=== PATIENT | female | born 1960 | race Caucasian/White ===

== ENCOUNTER → 2016-05-10 | Outpatient (CLI) | payer MEDICAID ==
--- NOTE | 2016-05-11 08:58 | MM ---
Reason for exam: screening (asymptomatic). Last mammogram was performed 1 year and 3 months ago. History: Patient is postmenopausal. Family history of premenopausal breast cancer in sister at age 42 and premenopausal breast cancer in aunt at age 48. Benign right US cyst aspiration of the right breast, February 16, 2005. Took hormonal contraceptives for 15 years. Physical Findings: A clinical breast exam by your physician is recommended on an annual basis and results should be correlated with mammographic findings. MG 3D Screening Mammo W/Cad Bilateral CC and MLO view(s) were taken. Prior study comparison: February 10, 2015, bilateral MG 3d screening mammo w/cad. December 10, 2013, bilateral MG screening mammo w CAD. There are scattered fibroglandular densities. There is no discrete abnormality. No significant changes when compared with prior studies. ASSESSMENT: Negative, BI-RAD 1 RECOMMENDATION: Routine screening mammogram of both breasts in 1 year.
== END | disposition home or self-care (01) ==
LOC: RADMAMWWP 16:47
PROVIDERS: ATTEND Internal Medicine
DX: Z12.31 Encounter for screening mammogram for malignant neoplasm of breast (principal)
CPT/HCPCS: 77063; G0202

== ENCOUNTER → 2016-08-10 | Outpatient (CLI) | payer MEDICAID ==
--- NOTE | 2016-08-10 15:44 | BD ---
EXAMINATION TYPE: MG DEXA axial skeleton. DATE OF EXAM: 08/10/2016 COMPARISON: NONE CLINICAL HISTORY: Postmenopausal female Height: 5 ft 5 in Weight: 227 FRAX RISK QUESTIONS: Alcohol (3 or more units per day): NO Family History (Parent hip fracture): NO Glucocorticoids (More than 3mos): NO (Ex: prednisone, prednisolone, methylprednisolone, dexamethasone, and hydrocortisone). History of Fracture in Adulthood: NO Secondary Osteoporosis: 1. Type 1 Diabetes: NO 2. Hyperthyroidism: NO 3. Menopause before 45: NO 4. Malnutrition: NO 5. Chronic liver disease: NO Rheumatoid Arthritis: NO Current Tobacco Use: NO RISK FACTORS HISTORY OF: Active: NO Postmenopausal woman: PARTIAL HYST AGE 37SYMPTOMS OF BHARATH WITHIN LAST 2-3 YRS MEDICATIONS: Additional Medications: LISINOPRIL,PRILOSEC,FLEXERIL,CELEXA,HYDROCHLOROTHIAZIDE, ALLERGY MEDS,VIT D, MULTI VIT, EXAM MEASUREMENTS: Bone mineral densitometry was performed using the [employer]. Bone mineral density as measured about the Lumbar spine is: ----- L1-L4(G/cm2): 0.940 T Score Values are as follows: ----- L2: -2.6 ----- L3: -1.6 ----- L4: -1.3 ----- L1-L4: -2.0 Bone mineral density has: Decreased -4.9% since study of: 2010 Bone mineral density about the R hip (g/cm2): 0.934 Bone mineral density about the L hip (g/cm2): 1.015 T Score values are as follows: -----R Neck: -0.7 -----L Neck: -0.2 -----R Total: -0.5 -----L Total: 0.6 Bone mineral density has: Increased 5.8% since study of: 2010 IMPRESSION: OSTEOPOROSIS. NOTE: T-SCORE=SD OF THE YOUNG ADULT MEAN.
== END | disposition home or self-care (01) ==
LOC: RADBDWWP 14:17
PROVIDERS: ATTEND Obstetrics & Gynecology
DX: M81.0 Age-related osteoporosis without current pathological fracture (principal); Z78.0 Asymptomatic menopausal state
CPT/HCPCS: 77080

== ENCOUNTER → 2016-09-08 | Outpatient (CLI) | payer MEDICAID ==
--- NOTE | 2016-09-08 14:54 | CT ---
EXAMINATION TYPE: CT chest w con DATE OF EXAM: 09/08/2016 COMPARISON: NONE HISTORY: Thoracic Aneurysm without mention of rupture CT DLP: 411.00 mGycm Automated exposure control for dose reduction was used. CONTRAST: CT scan of the chest is performed with IV Contrast, patient injected with 100 ml mL of Omnipaque 300. FINDINGS: LUNGS: The lungs are grossly clear, there is no concerning parenchymal mass or nodule identified. T here is no pleural effusion or pneumothorax seen. The tracheobronchial tree is patent. MEDIASTINUM: There is an ascending thoracic aortic aneurysm which is stable in size and measures 4.4 cm AP dimension versus 4.4 cm previously. There is no evidence for dissection or rupture. No mediasti nal hematoma is identified. Aneurysm does involve the aortic arch with proximal measurement of 4.1 cm in distal aortic arch measurement of 3.7 cm. Descending thoracic aorta is of normal caliber. There i s evidence of mild cardiomegaly. No adenopathy appreciated. Hilar structures are within. UPPER ABDOMEN: No significant abnormality appreciated. OTHER: No additional significant abnormality is seen. IMPRESSION: 1. Stable aneurysm of the ascending thoracic aorta and aortic arch. No complicating factors seen.
== END | disposition home or self-care (01) ==
LOC: RADCTMAIN 13:03
PROVIDERS: ATTEND Internal Medicine
DX: I71.2 Thoracic aortic aneurysm, without rupture (principal)
CPT/HCPCS: 71260; Q9967

== ENCOUNTER 2016-12-27 02:43 | Emergency (ER) | payer MEDICAID ==
--- NOTE | 2016-12-27 02:55 | ED ---
Trauma HPI - General Stated Complaint: FALL Time Seen by Provider: 12/27/16 02:44 Source: patient, EMS Limitations: no limitations - History of Present Illness Initial Comments: This patient is a 56-year-old woman who states that she was walking through her home in the dark and took a misstep. When she did she went onto the stairs and fell down a flight of stairs. She was not able to get up off of the bottom due to pain in the left arm. She also has pain in the left side of her upper neck. Patient denied loss consciousness. She is not having headache. She is not having chest pain, dyspnea, back pain, or abdominal pain. MD Complaint: fall Onset/Timin -: hour(s) Loss of Consciousness: no Location: neck Location - Extremities: Left: Arm, Forearm Consistency: constant Context: mechanical fall Associated Symptoms: denies other symptoms Treatments Prior to Arrival: cervical collar, splint(s) - Related Data Home Medications Medication Instructions Recorded Confirmed Albuterol Inhaler [Ventolin 2 puff INHALATION Q4HR PRN 12/20/13 07/16/15 Inhaler] Cetirizine HCl [Zyrtec] 10 mg PO DAILY 12/20/13 07/16/15 Citalopram Hydrobromide [CeleXA] 40 mg PO HS 12/20/13 07/16/15 Cyclobenzaprine [Flexeril] 10 mg PO BID 12/20/13 07/16/15 Omeprazole 40 mg PO AC-BRKFST 12/20/13 07/16/15 clonazePAM [KlonoPIN] 0.5 mg PO BID 12/20/13 07/16/15 Hydrochlorothiazide 12.5 mg PO DAILY 07/08/15 07/16/15 Lisinopril [Zestril] 20 mg PO DAILY 07/08/15 07/16/15 Naproxen Sodium [Aleve] 220 - 440 mg PO DIRECTED PRN 07/08/15 07/16/15 traMADol HCL [Ultram] 50 mg PO DIRECTED PRN 07/08/15 07/16/15 Metoclopramide [Reglan] 10 mg PO ACHS PRN 07/15/15 07/16/15 Previous Rx's Medication Instructions Recorded Hydrocodone/Acetaminophen [Hernandez 1 each PO Q6HR PRN #30 tab 07/16/15 9-163] Allergies Allergy/AdvReac Type Severity Reaction Status Date / Time ondansetron HCl AdvReac was told Verified 07/16/15 09:05 [From Zofran (as to avoid hydrochloride)] d/t prolonged QT on EKG CATS Allergy SEVERE Uncoded 07/16/15 09:05 SNEEZING, NASAL ALLERGY SX HAYFEVER Allergy SNEEZING, Uncoded 07/16/15 09:05 RHINITIS - W/ POLLENS, ETC MOLD,DUST Allergy SNEEZING, Uncoded 07/16/15 09:05 RHINITIS Review of Systems ROS Statement: Those systems with pertinent positive or pertinent negative responses have been documented in the HPI. ROS Other: All systems not noted in ROS Statement are negative. Constitutional: Denies: fever, weakness Eyes: Denies: vision change Respiratory: Denies: cough, dyspnea Cardiovascular: Denies: chest pain, syncope Gastrointestinal: Denies: abdominal pain, vomiting, diarrhea Genitourinary: Denies: dysuria, hematuria Musculoskeletal: Denies: back pain Skin: Denies: other Neurological: Denies: headache, weakness, confusion Hematological/Lymphatic: Denies: easy bleeding Past Medical History Past Medical History: GERD/Reflux, Hypertension Additional Past Medical History / Comment(s): hernia History of Any Multi-Drug Resistant Organisms: None Reported Past Surgical History: Bladder Surgery, Hysterectomy, Orthopedic Surgery Additional Past Surgical History / Comment(s): jaw surgery Additional Past Anesthesia/Blood Transfusion Reaction / Comment(s): WOKE UP DURING EGD Past Psychological History: Anxiety Smoking Status: Never smoker Past Alcohol Use History: Daily - Past Family History Mother Family Medical History: Unable to Obtain General Exam General appearance: alert, in no apparent distress, obese Head exam: Present: atraumatic, normocephalic Eye exam: Present: normal appearance, PERRL, EOMI. Absent: scleral icterus, conjunctival injection ENT exam: Present: mucous membranes dry Neck exam: Present: other (Cervical collar) Respiratory exam: Present: normal lung sounds bilaterally. Absent: respiratory distress, wheezes, rales, rhonchi, stridor, chest wall tenderness Cardiovascular Exam: Present: regular rate, normal rhythm, normal heart sounds. Absent: systolic murmur, diastolic murmur, rubs, gallop GI/Abdominal exam: Present: soft. Absent: distended, tenderness, guarding, rebound, mass Extremities exam: Present: normal inspection, tenderness, normal capillary refill, other (Patient has laceration to the posterior aspect of the left elbow. ). Absent: full ROM, pedal edema, calf tenderness Left Shoulder Exam: Present: normal inspection Upper Arm exam: Present: tenderness, swelling. Absent: full ROM Elbow exam: Present: tenderness, swelling, laceration. Absent: full ROM Forearm Wrist exam: Present: tenderness, swelling. Absent: full ROM Neurosensory exam: Present: 2-point discrimination Vascular: Present: normal capillary refill, radial pulse (Intact). Absent: vascular compromise Back exam: Present: normal inspection. Absent: CVA tenderness (R), CVA tenderness (L) Neurological exam: Present: alert, oriented X3. Absent: motor sensory deficit Skin exam: Present: warm, dry, intact, normal color. Absent: rash Course Vital Signs 12/27/16 12/27/16 12/27/16 02:44 03:47 04:44 Temperature 98.6 F 97.8 F Pulse Rate 82 88 86 Respiratory 20 20 17 Rate Blood Pressure 137/71 147/73 135/69 O2 Sat by Pulse 94 L 97 96 Oximetry - Reevaluation(s) Reevaluation #1: 12/27/16 04:24 I was in the process of reviewing the patient's CT cervical spine and received a call from the radiology service describing patient's odontoid fracture. I did go and discuss this finding with the patient and with her and they expressed a desire to go to [facility]. I have discussed the case with Dr. Palafox there and she is discussing with the trauma surgery service to see if this patient can be accepted. Medical Decision Making - Medical Decision Making Patient's 56-year-old woman who had a fall down flight of stairs. She has odontoid fracture. No neurologic deficit. She has comminuted fracture to the distal humerus. There is laceration to the posterior aspect of the arm here and though no bone observed suspect this is open fracture. Patient has distal radius fracture. Patient is neurovascularly intact. - Lab Data Result diagrams: 12/27/16 02:44 12/27/16 02:44 Lab Results 12/27/16 12/27/16 12/27/16 Range/Units 02:44 02:44 02:44 WBC 15.6 H (3.8-10.6) k/uL RBC 4.46 (3.80-5.40) m/uL Hgb 12.1 (11.4-16.0) gm/dL Hct 36.9 (34.0-46.0) % MCV 82.7 (80.0-100.0) fL MCH 27.1 (25.0-35.0) pg MCHC 32.8 (31.0-37.0) g/dL RDW 14.1 (11.5-15.5) % Plt Count 405 (150-450) k/uL Neutrophils % 75 % Lymphocytes % 17 % Monocytes % 4 % Eosinophils % 2 % Basophils % 0 % Neutrophils # 11.7 H (1.3-7.7) k/uL Lymphocytes # 2.6 (1.0-4.8) k/uL Monocytes # 0.7 (0-1.0) k/uL Eosinophils # 0.3 (0-0.7) k/uL Basophils # 0.1 (0-0.2) k/uL PT (9.0-12.0) sec INR (<1.2) APTT (22.0-30.0) sec Sodium 132 L (137-145) mmol/L Potassium 3.7 (3.5-5.1) mmol/L Chloride 98 (98-107) mmol/L Carbon Dioxide 24 (22-30) mmol/L Anion Gap 10 mmol/L BUN 15 (7-17) mg/dL Creatinine 0.61 (0.52-1.04) mg/dL Est GFR (MDRD) Af Amer >60 (>60 ml/min/1.73 sqM) Est GFR (MDRD) Non-Af >60 (>60 ml/min/1.73 sqM) Glucose 138 H (74-99) mg/dL Plasma Lactic Acid Husam (0.7-2.0) mmol/L Calcium 9.5 (8.4-10.2) mg/dL Total Bilirubin 0.2 (0.2-1.3) mg/dL AST 56 H (14-36) U/L ALT 48 (9-52) U/L Alkaline Phosphatase 62 (38-126) U/L Troponin I (0.000-0.034) ng/mL Total Protein 6.8 (6.3-8.2) g/dL Albumin 4.0 (3.5-5.0) g/dL Urine Color Urine Appearance (Clear) Urine pH (5.0-8.0) Ur Specific [place] (1.001-1.035) Urine Protein (Negative) Urine Glucose (UA) (Negative) Urine Ketones (Negative) Urine Blood (Negative) Urine Nitrite (Negative) Urine Bilirubin (Negative) Urine Urobilinogen (<2.0) mg/dL Ur Leukocyte Esterase (Negative) Urine RBC (0-5) /hpf Urine WBC (0-5) /hpf Ur Squamous Epith Cells (0-4) /hpf Urine Opiates Screen (NotDetected) Ur Oxycodone Screen (NotDetected) Urine Methadone Screen (NotDetected) Ur Propoxyphene Screen (NotDetected) Ur Barbiturates Screen (NotDetected) U Tricyclic Antidepress (NotDetected) Ur Phencyclidine Scrn (NotDetected) Ur Amphetamines Screen (NotDetected) U Methamphetamines Scrn (NotDetected) U Benzodiazepines Scrn (NotDetected) Urine Cocaine Screen (NotDetected) U Marijuana (THC) Screen (NotDetected) Serum Alcohol <10 mg/dL Blood Type A Positive Blood Type Confirm Blood Type Recheck CABO Indicated Antibody Screen NEGATIVE Spec Expiration Date 12/30/2016234312/27/16 12/27/16 12/27/16 Range/Units 02:44 02:44 02:44 WBC (3.8-10.6) k/uL RBC (3.80-5.40) m/uL Hgb (11.4-16.0) gm/dL Hct (34.0-46.0) % MCV (80.0-100.0) fL MCH (25.0-35.0) pg MCHC (31.0-37.0) g/dL RDW (11.5-15.5) % Plt Count (150-450) k/uL Neutrophils % % Lymphocytes % % Monocytes % % Eosinophils % % Basophils % % Neutrophils # (1.3-7.7) k/uL Lymphocytes # (1.0-4.8) k/uL Monocytes # (0-1.0) k/uL Eosinophils # (0-0.7) k/uL Basophils # (0-0.2) k/uL PT 10.3 (9.0-12.0) sec INR 1.0 (<1.2) APTT 22.3 (22.0-30.0) sec Sodium (137-145) mmol/L Potassium (3.5-5.1) mmol/L Chloride (98-107) mmol/L Carbon Dioxide (22-30) mmol/L Anion Gap mmol/L BUN (7-17) mg/dL Creatinine (0.52-1.04) mg/dL Est GFR (MDRD) Af Amer (>60 ml/min/1.73 sqM) Est GFR (MDRD) Non-Af (>60 ml/min/1.73 sqM) Glucose (74-99) mg/dL Plasma Lactic Acid Husam (0.7-2.0) mmol/L Calcium (8.4-10.2) mg/dL Total Bilirubin (0.2-1.3) mg/dL AST (14-36) U/L ALT (9-52) U/L Alkaline Phosphatase (38-126) U/L Troponin I <0.012 (0.000-0.034) ng/mL Total Protein (6.3-8.2) g/dL Albumin (3.5-5.0) g/dL Urine Color Urine Appearance (Clear) Urine pH (5.0-8.0) Ur Specific [place] (1.001-1.035) Urine Protein (Negative) Urine Glucose (UA) (Negative) Urine Ketones (Negative) Urine Blood (Negative) Urine Nitrite (Negative) Urine Bilirubin (Negative) Urine Urobilinogen (<2.0) mg/dL Ur Leukocyte Esterase (Negative) Urine RBC (0-5) /hpf Urine WBC (0-5) /hpf Ur Squamous Epith Cells (0-4) /hpf Urine Opiates Screen (NotDetected) Ur Oxycodone Screen (NotDetected) Urine Methadone Screen (NotDetected) Ur Propoxyphene Screen (NotDetected) Ur Barbiturates Screen (NotDetected) U Tricyclic Antidepress (NotDetected) Ur Phencyclidine Scrn (NotDetected) Ur Amphetamines Screen (NotDetected) U Methamphetamines Scrn (NotDetected) U Benzodiazepines Scrn (NotDetected) Urine Cocaine Screen (NotDetected) U Marijuana (THC) Screen (NotDetected) Serum Alcohol mg/dL Blood Type Blood Type Confirm A Positive Blood Type Recheck Antibody Screen Spec Expiration Date 12/27/16 12/27/16 Range/Units 02:57 03:13 WBC (3.8-10.6) k/uL RBC (3.80-5.40) m/uL Hgb (11.4-16.0) gm/dL Hct (34.0-46.0) % MCV (80.0-100.0) fL MCH (25.0-35.0) pg MCHC (31.0-37.0) g/dL RDW (11.5-15.5) % Plt Count (150-450) k/uL Neutrophils % % Lymphocytes % % Monocytes % % Eosinophils % % Basophils % % Neutrophils # (1.3-7.7) k/uL Lymphocytes # (1.0-4.8) k/uL Monocytes # (0-1.0) k/uL Eosinophils # (0-0.7) k/uL Basophils # (0-0.2) k/uL PT (9.0-12.0) sec INR (<1.2) APTT (22.0-30.0) sec Sodium (137-145) mmol/L Potassium (3.5-5.1) mmol/L Chloride (98-107) mmol/L Carbon Dioxide (22-30) mmol/L Anion Gap mmol/L BUN (7-17) mg/dL Creatinine (0.52-1.04) mg/dL Est GFR (MDRD) Af Amer (>60 ml/min/1.73 sqM) Est GFR (MDRD) Non-Af (>60 ml/min/1.73 sqM) Glucose (74-99) mg/dL Plasma Lactic Acid Husam 1.0 (0.7-2.0) mmol/L Calcium (8.4-10.2) mg/dL Total Bilirubin (0.2-1.3) mg/dL AST (14-36) U/L ALT (9-52) U/L Alkaline Phosphatase (38-126) U/L Troponin I (0.000-0.034) ng/mL Total Protein (6.3-8.2) g/dL Albumin (3.5-5.0) g/dL Urine Color Yellow Urine Appearance Cloudy H (Clear) Urine pH 7.5 (5.0-8.0) Ur Specific [place] 1.009 (1.001-1.035) Urine Protein Trace H (Negative) Urine Glucose (UA) Negative (Negative) Urine Ketones Negative (Negative) Urine Blood Negative (Negative) Urine Nitrite Negative (Negative) Urine Bilirubin Negative (Negative) Urine Urobilinogen <2.0 (<2.0) mg/dL Ur Leukocyte Esterase Trace H (Negative) Urine RBC 2 (0-5) /hpf Urine WBC 7 H (0-5) /hpf Ur Squamous Epith Cells 1 (0-4) /hpf Urine Opiates Screen Detected H (NotDetected) Ur Oxycodone Screen Not Detected (NotDetected) Urine Methadone Screen Not Detected (NotDetected) Ur Propoxyphene Screen Not Detected (NotDetected) Ur Barbiturates Screen Not Detected (NotDetected) U Tricyclic Antidepress Detected H (NotDetected) Ur Phencyclidine Scrn Not Detected (NotDetected) Ur Amphetamines Screen Not Detected (NotDetected) U Methamphetamines Scrn Not Detected (NotDetected) U Benzodiazepines Scrn Not Detected (NotDetected) Urine Cocaine Screen Not Detected (NotDetected) U Marijuana (THC) Screen Not Detected (NotDetected) Serum Alcohol mg/dL Blood Type Blood Type Confirm Blood Type Recheck Antibody Screen Spec Expiration Date - EKG Data -: EKG Interpreted by [facility] EKG shows normal: sinus rhythm, axis (Normal), intervals (Normal), QRS complexes (Normal), ST-T waves (Normal) Rate: normal (Rate 83 bpm) Interpretation: other (Possible left atrial enlargement) Disposition Clinical Impression: Fall, Fx C2 vertebra-closed, Comminuted left humeral fracture, Fracture of left radius Disposition: HOME SELF-CARE Referrals: Angelina Mackey MD [Primary Care Provider] - 1-2 days
[2016-12-27 02:57] LABS: Basophils # (A) 0.1 k/uL (0-0.2); Basophils % (A) 0 %; CH 28.3; CHCM 34.4; Eosinophils # (A) 0.3 k/uL (0-0.7); Eosinophils % (A) 2 %; HCT 36.9 % (34.0-46.0); HDW 2.35; HGB 12.1 gm/dL (11.4-16.0); Luc # (Auto) 0.13; Luc % (Auto) 1; Lymphocytes # (A) 2.6 k/uL (1.0-4.8); Lymphocytes % (A) 17 %; MCH 27.1 pg (25.0-35.0); MCHC 32.8 g/dL (31.0-37.0); MCV 82.7 fL (80.0-100.0); Mean Platelet Volume 6.8; Monocytes # (A) 0.7 k/uL (0-1.0); Monocytes % (A) 4 %; Neutrophils # (A) 11.7 k/uL (1.3-7.7); Neutrophils % (A) 75 %; RBC 4.46 m/uL (3.80-5.40); RDW 14.1 % (11.5-15.5); WBC 15.6 k/uL (3.8-10.6); WBC (Perox) 16.36
[2016-12-27 03:06] LABS: Partial Thromboplastin Time 22.3 sec (22.0-30.0); Prothrombin Time 10.3 sec (9.0-12.0)
[2016-12-27 03:08] LABS: ALT 48 U/L (9-52); AST 56 U/L (14-36); Alcohol <10 mg/dL; Alkaline Phosphatase 62 U/L (38-126); Anion Gap 10 mmol/L; Blood Urea Nitrogen 15 mg/dL (7-17); Calcium 9.5 mg/dL (8.4-10.2); Carbon Dioxide 24 mmol/L (22-30); Chloride 98 mmol/L (98-107); Glucose 138 mg/dL (74-99); Non-African American GFR(MDRD) >60 (>60 ml/min/1.73 sqM); Potassium 3.7 mmol/L (3.5-5.1); Sodium 132 mmol/L (137-145); Total Bilirubin 0.2 mg/dL (0.2-1.3); Total Protein 6.8 g/dL (6.3-8.2)
[2016-12-27 03:25] LABS: Appearance,Urine Cloudy (Clear); Bilirubin,Urine Negative (Negative); Glucose,Urine (UA) Negative (Negative); Ketones,Urine Negative (Negative); Leukocyte Esterase,Urine Trace (Negative); Nitrite,Urine Negative (Negative); PH, Urine 7.5 (5.0-8.0); Particle Count 15340; Protein,Urine Trace (Negative); RBC,Urine 2 /hpf (0-5); Specific Gravity,Urine 1.009 (1.001-1.035); Squamous Epithelial Cell,Urine 1 /hpf (0-4); UA Billing (MACRO vs. MICRO) MICRO; Urobilinogen,Urine <2.0 mg/dL (<2.0); WBC,Urine 7 /hpf (0-5)
--- NOTE | 2016-12-27 03:56 | XR ---
EXAM: XR Chest, 1 View CLINICAL HISTORY: Trauma TECHNIQUE: Frontal view of the chest. COMPARISON: No relevant prior studies available. FINDINGS: Lungs: Bilateral perihilar hazy prominence with evidence of peribronchial cuffing and cephalization suggesting mild CHF. Pleural space: Unremarkable. No pneumothorax. Heart: The heart appears mildly enlarged. Mediastinum: Prominent, likely secondary to vasculature. Bones/joints: No evidence of a displaced rib fracture. Tubes, lines and devices: Monitor leads overlie the chest, somewhat limiting evaluation. IMPRESSION: 1. Mild cardiomegaly with evidence of mild CHF. Correlate clinically. 2. No evidence of a displaced rib fracture. If there is further clinical concern, consider dedicated radiographs of the ribs.
--- NOTE | 2016-12-27 04:07 | CT ---
EXAM: CT Cervical Spine Without Intravenous Contrast CLINICAL HISTORY: Reason: trauma TECHNIQUE: Axial computed tomography images of the cervical spine without intravenous contrast. DLP is 401.30 mGy-cm. This CT exam was performed using one or more of the following dose reduction techniques: automated exposure control, adjustment of the mA and/or kV according to patient size, and/or use of iterative reconstruction technique. COMPARISON: No relevant prior studies available. FINDINGS: Vertebrae: Type III comminuted fracture of the odontoid with extension into the left lateral mass of C2 and likely the transverse foramen. There is no evidence of significant displacement. Discs/spinal canal/neural foramina: No acute findings. No spinal canal stenosis. Other bones/joints: Non-comminuted minimally displaced fracture involving the left occipital condyle (series 6, image 17). Soft tissues: No significant soft tissue swelling. Lung apices: Unremarkable as visualized. IMPRESSION: 1. Type III comminuted fracture of the odontoid with extension into the left lateral mass of C2 and likely the left transverse foramen. There is no evidence of significant displacement. There is no evidence of cord compression. 2. Non-comminuted minimally displaced fracture involving the left occipital condyle. [employer] 12/27/16 04:02 Call Doctor Regarding Trauma, called DR SUMMERS @ [phone]
--- NOTE | 2016-12-27 04:09 | XR ---
EXAM: XR Left Forearm, 2 Views CLINICAL HISTORY: Reason: trauma TECHNIQUE: Frontal and lateral views of the left forearm. COMPARISON: No relevant prior studies available. FINDINGS: Bones/joints: Comminuted fracture of the distal left radius extending to the articular surface with evidence of retraction and volar displacement of the distal fracture fragments. Soft tissues: Associated overlying soft tissue swelling. IMPRESSION: Comminuted fracture of the distal left radius extending to the articular surface with evidence of retraction and volar displacement of the distal fracture fragments.
--- NOTE | 2016-12-27 04:11 | XR ---
EXAM: XR Left Humerus, 2 or More Views CLINICAL HISTORY: Reason: trauma TECHNIQUE: Frontal and lateral views of the left humerus. COMPARISON: No relevant prior studies available. FINDINGS: Bones/joints: Extensive comminuted fracture of the distal humerus with significant dorsal/posterior displacement of the distal fracture fragments. Associated soft tissue swelling is seen with evidence of subcutaneous air. No dislocation. Soft tissues: See above. IMPRESSION: Extensive comminuted fracture of the distal humerus with significant dorsal/posterior displacement of the distal fracture fragments. Associated soft tissue swelling is seen with evidence of subcutaneous air.
--- NOTE | 2016-12-27 04:12 | XR ---
EXAM: XR Pelvis, 1 or 2 Views CLINICAL HISTORY: Reason: Trauma TECHNIQUE: Frontal view of the pelvis. COMPARISON: No relevant prior studies available. FINDINGS: Bones/joints: Unremarkable. No acute fracture. No dislocation. Soft tissues: Unremarkable. IMPRESSION: Normal pelvis x-ray.
[2016-12-27] MEDS ORDERED: ceFAZolin 1,000 MG in DEXTROSE/WATER 1 50ML.BAG IVPB STA (04:23)
[2016-12-27] MEDS ORDERED: HYDROmorphone 1 MG/ML 1 ML SYRINGE IVP STA ×2 (04:24→05:17)
[2016-12-27 04:47] VITALS: TEMP 97.8
[2016-12-27 05:40] VITALS: BP 126/66; PULSE 92; RESP 18
== END 2016-12-27 05:41 | disposition home or self-care (01) ==
LOC: EC 02:43
DX: S42.402A Unspecified fracture of lower end of left humerus, initial encounter for closed fracture (principal); S52.502A Unspecified fracture of the lower end of left radius, initial encounter for closed fracture; S12.100A Unspecified displaced fracture of second cervical vertebra, initial encounter for closed fracture; K21.9 Gastro-esophageal reflux disease without esophagitis; I10 Essential (primary) hypertension; F41.9 Anxiety disorder, unspecified; Z79.899 Other long term (current) drug therapy; Z91.048 Other nonmedicinal substance allergy status; Z88.8 Allergy status to other drugs, medicaments and biological substances; Z91.09 Other allergy status, other than to drugs and biological substances; W10.9XXA Fall (on) (from) unspecified stairs and steps, initial encounter; Y92.009 Unspecified place in unspecified non-institutional (private) residence as the place of occurrence of the external cause
CPT/HCPCS: 36415; 93005; 86900; 86901; 80053; 83605; 84484; 85025; 85610; 85730; 86850; 81001; 80306; 80320; 71010; 72170; 73060; 73090; 72125; 99285; 96365; 96375; 96376; J1170; J0690

== ENCOUNTER → 2017-03-21 | Outpatient (CLI) | payer MEDICAID | END | disposition home or self-care (01) | LOC: LABWHC1 14:35 | PROVIDERS: ATTEND Obstetrics & Gynecology | DX: N95.1 Menopausal and female climacteric states (principal); N95.9 Unspecified menopausal and perimenopausal disorder | CPT/HCPCS: 36415; 82670; 83001 ==

== ENCOUNTER → 2017-04-19 | Outpatient (CLI) | payer MEDICAID ==
[2017-04-19 09:46] LABS: Basophils % (A) 0 %; Eosinophils # (A) 0.1 k/uL (0-0.7); Eosinophils % (A) 3 %; HCT 37.5 % (34.0-46.0); HGB 12.7 gm/dL (11.4-16.0); Lymphocytes # (A) 1.1 k/uL (1.0-4.8); Lymphocytes % (A) 21 %; MCH 26.9 pg (25.0-35.0); MCHC 33.9 g/dL (31.0-37.0); MCV 79.5 fL (80.0-100.0); Mean Platelet Volume 6.7; Monocytes # (A) 0.4 k/uL (0-1.0); Monocytes % (A) 8 %; Neutrophils # (A) 3.5 k/uL (1.3-7.7); Neutrophils % (A) 66 %; Platelet Count 370 k/uL (150-450); RBC 4.72 m/uL (3.80-5.40); RDW 14.1 % (11.5-15.5); WBC 5.3 k/uL (3.8-10.6)
[2017-04-19 10:23] LABS: T4, Free (Free Thyroxine) 1.02 ng/dL (0.78-2.19)
[2017-04-19 13:16] LABS: Erythrocyte Sedimentation Rate 9 mm/hr (0-20)
== END | disposition home or self-care (01) ==
LOC: LABWHC1 09:05
PROVIDERS: ATTEND Psychiatry & Neurology Neurology
DX: R53.83 Other fatigue (principal); R41.3 Other amnesia
CPT/HCPCS: 36415; 82306; 82550; 82607; 84439; 84443; 85025; 85652

== ENCOUNTER → 2017-09-20 | Outpatient (CLI) | payer MEDICAID ==
--- NOTE | 2017-09-26 17:13 | MM ---
Reason for exam: screening (asymptomatic). Last mammogram was performed 1 year and 4 months ago. History: Patient is postmenopausal. Family history of premenopausal breast cancer in sister at age 42 and premenopausal breast cancer in aunt at age 48. Benign right US cyst aspiration of the right breast, February 16, 2005. Took hormonal contraceptives for 15 years. MG 3D Screening Mammo W/Cad Bilateral CC and MLO view(s) were taken. Prior study comparison: May 10, 2016, bilateral MG 3d screening mammo w/cad. February 10, 2015, bilateral MG 3d screening mammo w/cad. December 10, 2013, bilateral MG screening mammo w CAD. There are scattered fibroglandular densities. No suspicious abnormality. No significant new finding since prior exam. ASSESSMENT: Negative, BI-RAD 1 RECOMMENDATION: Routine screening mammogram of both breasts in 1 year.
== END | disposition home or self-care (01) ==
LOC: RADMAMWWP 14:01
PROVIDERS: ATTEND Obstetrics & Gynecology
DX: Z12.31 Encounter for screening mammogram for malignant neoplasm of breast (principal); Z80.3 Family history of malignant neoplasm of breast
CPT/HCPCS: 77063; 77067

== ENCOUNTER → 2017-10-06 | Outpatient (CLI) | payer MEDICAID ==
[2017-10-06 10:33] LABS: HCT 41.6 % (34.0-46.0); HGB 13.6 gm/dL (11.4-16.0); MCH 27.8 pg (25.0-35.0); MCHC 32.6 g/dL (31.0-37.0); MCV 85.5 fL (80.0-100.0); Mean Platelet Volume 6.1; Platelet Count 363 k/uL (150-450); RBC 4.87 m/uL (3.80-5.40); RDW 12.6 % (11.5-15.5); WBC 8.9 k/uL (3.8-10.6)
[2017-10-06 11:10] LABS: ALT 31 U/L (9-52); AST 33 U/L (14-36); Albumin 4.3 g/dL (3.5-5.0); Alkaline Phosphatase 62 U/L (38-126); Anion Gap 10 mmol/L; Blood Urea Nitrogen 10 mg/dL (7-17); Calcium 9.7 mg/dL (8.4-10.2); Carbon Dioxide 23 mmol/L (22-30); Chloride 102 mmol/L (98-107); Cholesterol 172 mg/dL (<200); Glucose 88 mg/dL (74-99); HDL Cholesterol 45 mg/dL (40-60); LDL Cholesterol,Calculated 96 mg/dL (0-99); Potassium 4.5 mmol/L (3.5-5.1); Sodium 135 mmol/L (137-145); Total Bilirubin 0.5 mg/dL (0.2-1.3); Total Protein 7.3 g/dL (6.3-8.2); Triglycerides 153 mg/dL (<150)
== END | disposition home or self-care (01) ==
LOC: LABWHC1 09:44
PROVIDERS: ATTEND Obstetrics & Gynecology
DX: Z00.00 Encounter for general adult medical examination without abnormal findings (principal); N95.1 Menopausal and female climacteric states; I10 Essential (primary) hypertension; K21.9 Gastro-esophageal reflux disease without esophagitis
CPT/HCPCS: 36415; 80053; 80061; 82670; 83001; 84403; 84443; 85027

== ENCOUNTER → 2017-10-10 | Outpatient (CLI) | payer MEDICAID ==
--- NOTE | 2017-10-11 08:58 | CT ---
EXAMINATION TYPE: CT chest wo con DATE OF EXAM: 10/10/2017 COMPARISON: 09/08/2016 HISTORY: Follow up for thoracic anuerysm CT DLP: [address] of the chest was performed with lung and mediastinal window settings submitted. The la ck of contrast limits evaluation of the vascular, mediastinal and parenchymal structures including th e upper abdomen. LUNGS: The lungs are clear and free of infiltrate. No atelectasis. No pulmonary nodule or mass is de tected. No pleural effusion. No CT evidence of interstitial lung disease. MEDIASTINUM/DOE: Ascending aortic thoracic aortic aneurysm measuring 4.4 cm in AP dimension unchange d from prior measurement of 4.4 cm. No complicating factors identified. The heart is not enlarged. N o evidence for mediastinal mass. No lymph nodes greater than 1cm. UPPER ABDOMEN: No significant abnormality is seen. OTHER: No significant other abnormality. IMPRESSION: 1. Stable uncomplicated ascending thoracic aortic aneurysm.
== END | disposition home or self-care (01) ==
LOC: RADCTMAIN 16:20
PROVIDERS: ATTEND Internal Medicine
DX: I71.2 Thoracic aortic aneurysm, without rupture (principal)
CPT/HCPCS: 71250

== ENCOUNTER → 2017-12-18 | Outpatient (CLI) | payer MEDICAID ==
--- NOTE | 2017-12-18 15:56 | CT ---
EXAMINATION TYPE: CT cervical spine wo con DATE OF EXAM: 12/18/2017 COMPARISON: 12/27/2016 HISTORY: Follow up for c-spine fracture. CT DLP: 625.1 mGycm Automated exposure control for dose reduction was used. TECHNIQUE: CT scan of the cervical spine is obtained without contrast, axial images are obtained, sa gittal and coronal reformatted images are also reviewed. FINDINGS: Assessment spinal canal is limited due to noncontrast technique and artifact. There is a de formity of the odontoid compatible with a healed fracture. The lateral masses appear to be normally s ituated. Fracture involving the left occipital condyle demonstrates interval healing. Loss of the normal cervical lordosis with diffuse osteopenia. There is mild multilevel degenerative d isc disease with moderate changes at C5-C6 and posterior spondylosis with uncovertebral joint hypertr ophy and mild right-sided foraminal encroachment. IMPRESSION: 1. There is interval healing of the previously noted fractures involving the odontoid and left occipi alberto condyle. 2. Multilevel degenerative disc disease with most marked changes at C5-C6 correlate with MRI as clini christiane warranted. 3. There is a stable nodular density in the left upper lobe measuring 6 mm. This most likely is posti nflammatory.
== END | disposition home or self-care (01) ==
LOC: RADCTMAIN 14:35
PROVIDERS: ATTEND Nurse Practitioner Family
DX: M50.322 Other cervical disc degeneration at C5-C6 level (principal)
CPT/HCPCS: 72125

== ENCOUNTER → 2017-12-21 | Outpatient (CLI) | payer MEDICAID ==
[2017-12-19 17:01] VITALS: BMI 35.2
[2017-12-21 11:57] VITALS: BP 146/81; PULSE 88; RESP 16
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
== END | disposition home or self-care (01) ==
LOC: PNWHC3 11:35
PROVIDERS: ATTEND Specialist
DX: M50.30 Other cervical disc degeneration, unspecified cervical region (principal); M79.18 Myalgia, other site; I10 Essential (primary) hypertension; K21.9 Gastro-esophageal reflux disease without esophagitis; F41.9 Anxiety disorder, unspecified; Z87.891 Personal history of nicotine dependence; Z79.899 Other long term (current) drug therapy; Z88.8 Allergy status to other drugs, medicaments and biological substances; Z91.048 Other nonmedicinal substance allergy status; Z86.718 Personal history of other venous thrombosis and embolism; Z98.890 Other specified postprocedural states; Z90.710 Acquired absence of both cervix and uterus
CPT/HCPCS: 99211

== ENCOUNTER → 2018-01-17 | Outpatient (CLI) | payer MEDICAID ==
--- NOTE | 2018-01-19 18:43 | MR ---
EXAMINATION TYPE: MR cervical spine wo con DATE OF EXAM: 01/17/2018 COMPARISON: CT cervical spine 12/18/2017, 12/27/2016. HISTORY: Posterior displaced Type II dens fracture 12-27-2016, Neck pain CONTRAST: Performed utilizing 0 mL intravenous Gadavist gadolinium contrast. TECHNIQUE: Multiplanar multiecho imaging on a 3.0 Liz magnet is performed through the cervical spin e. FINDINGS: The craniovertebral junction is normal. Vertebral body alignment is normal. Based on these images there appears to be interval healing of the odontoid fracture. C7-T1: No focal disc herniation or significant disc bulge is evident. No spinal canal stenosis or n eural foraminal stenosis is present. C6-7: Mild disc bulging is anterior thecal sac contact. No spinal canal stenosis, cord contact, or fo raminal narrowing is evident.. C5-6: Broad-based disc bulge has mild anterior thecal sac compression. Uncovertebral joint hypertroph y is moderate right and mild left foraminal narrowing. No spinal canal stenosis or cord contact is ev ident.. C4-5: Very minimal disc bulge may be present with anterior thecal sac contact. No cord contact or spi nal canal stenosis present. Neural foramen are patent.. C3-4: No focal disc herniation or significant disc bulge is evident. No spinal canal stenosis or kenya ral foraminal stenosis is present. C2-3: No focal disc herniation or significant disc bulge is evident. No spinal canal stenosis or kenya ral foraminal stenosis is present. IMPRESSIONS: 1. Interval healing of prior odontoid fracture. 2. Mild disc bulging C6-7 and C4-5 with anterior thecal sac contact. 3. Broad-based moderate disc bulge has mild anterior thecal sac compression at C5-6. Uncovertebral duane int hypertrophy this level has moderate right and mild left foraminal narrowing.
== END | disposition home or self-care (01) ==
LOC: RADMRIMAIN 19:10
PROVIDERS: ATTEND Neurological Surgery
DX: S12.111D Posterior displaced Type II dens fracture, subsequent encounter for fracture with routine healing (principal); M99.71 Connective tissue and disc stenosis of intervertebral foramina of cervical region; M50.221 Other cervical disc displacement at C4-C5 level
CPT/HCPCS: 72141

== ENCOUNTER → 2018-04-16 | Outpatient (CLI) | payer MEDICAID | END | disposition home or self-care (01) | LOC: LABWHC1 16:43 | PROVIDERS: ATTEND Obstetrics & Gynecology | DX: N95.1 Menopausal and female climacteric states (principal) | CPT/HCPCS: 36415; 82670; 83001; 84403 ==

== ENCOUNTER → 2018-11-07 | Outpatient (CLI) | payer MEDICAID ==
--- NOTE | 2018-11-07 15:28 | CT ---
EXAMINATION TYPE: CT chest wo con DATE OF EXAM: 11/07/2018 COMPARISON: CT chest October 10, 2017 and older CTs. HISTORY: f/u aneurysm CT DLP: 456.8 mGycm. Automated Exposure Control for Dose Reduction was Utilized. TECHNIQUE: CT scan of the thorax is performed without IV contrast. FINDINGS: LUNGS: Stable 6 x 3 mm posterior left upper lobe nodule axial image 9 unchanged back through 2015 CT. Stable left basilar linear scarring. No new nodules or masses. No pleural effusion or pneumothorax s een bilaterally. MEDIASTINUM: Lack of IV contrast is noted to limit evaluation for mediastinal and especially hilar ad enopathy. There are no definitive greater than 1 cm hilar or mediastinal lymph nodes. No pericardia l effusion is seen. Heart size is stable and upper limits of normal. Persistent enlarged main pulmona ry artery at 4.1 cm on axial image 25. 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 Stable ascending aortic aneurysm up to 4.4 cm axial image 26. OTHER: Mild multilevel spurring is seen. IMPRESSION: Stable ascending aortic aneurysm up to 4.4 cm.
--- NOTE | 2018-11-09 13:27 | MM ---
Reason for exam: screening (asymptomatic). Last mammogram was performed 1 year and 2 months ago. History: Patient is postmenopausal. Family history of premenopausal breast cancer in sister at age 42 and premenopausal breast cancer in aunt at age 48. Benign right US cyst aspiration of the right breast, February 16, 2005. Took hormonal contraceptives for 15 years. Taking other hormone for 2 years. Physical Findings: A clinical breast exam by your physician is recommended on an annual basis and results should be correlated with mammographic findings. MG 3D Screening Mammo W/Cad Bilateral CC and MLO view(s) were taken. Prior study comparison: September 20, 2017, bilateral MG 3d screening mammo w/cad. May 10, 2016, bilateral MG 3d screening mammo w/cad. No significant changes when compared with prior studies. ASSESSMENT: Benign, BI-RAD 2 RECOMMENDATION: Routine screening mammogram of both breasts in 1 year.
== END | disposition home or self-care (01) ==
LOC: RADMAMWWP 13:58
PROVIDERS: ATTEND Obstetrics & Gynecology
DX: Z12.31 Encounter for screening mammogram for malignant neoplasm of breast (principal); I71.2 Thoracic aortic aneurysm, without rupture; Z80.3 Family history of malignant neoplasm of breast
CPT/HCPCS: 71250; 77063; 77067

== ENCOUNTER → 2019-05-10 | Outpatient (CLI) | payer MEDICAID ==
[2019-05-10 18:48] LABS: Estradiol 72.2 pg/mL; Follicle Stimulating Hormone 18.1 mIU/mL
== END | disposition home or self-care (01) ==
LOC: LABWHC1 11:51
PROVIDERS: ATTEND Obstetrics & Gynecology
DX: N95.1 Menopausal and female climacteric states (principal); R61 Generalized hyperhidrosis; E34.50 Androgen insensitivity syndrome, unspecified
CPT/HCPCS: 36415; 82670; 83001; 84144; 84403

== ENCOUNTER → 2019-11-27 | Outpatient (CLI) | payer MEDICAID ==
--- NOTE | 2019-11-28 04:37 | CT ---
EXAMINATION TYPE: CT chest wo con DATE OF EXAM: 11/27/2019 COMPARISON: 11/07/2018 and 10/10/2017 HISTORY: 59-year-old female I71.2, follow-up thoracic aortic aneurysm without rupture. TECHNIQUE: Contiguous axial scanning of the chest without IV contrast. Coronal and sagittal reconstru ctions performed. CT DLP: 494.7 mGycm Automated exposure control for dose reduction was used. FINDINGS: Heart upper limits of normal in size without pericardial effusion. Aortic root is ectatic at 4.0 cm, unchanged. Ascending aorta aneurysmal at 4.4 cm, unchanged. Proximal arch aneurysmal at 4.3 cm, unchanged. Distal aortic arch is ectatic at 3.5 cm, unchanged. Mid descending thoracic aorta ectatic at 2.7 cm, unchanged. Distal descending thoracic aorta normal caliber at 2.3 cm. Conventional arterial vessel branching anatomy. No thoracic lymph adenopathy by CT size criteria. Lungs show some minimal strandy atelectasis at the left base. Stable 5 mm subpleural pulmonary nodule lateral left apex as compared to 2018 compatible with a benign etiology. No consolidation or pleural effusion. Visualized upper abdomen shows no gross abnormality. Bones: No osseous destructive process. IMPRESSION: STABLE ANEURYSMAL AORTIC ROOT (4.0 CM), ASCENDING AORTA (4.4 CM), AND PROXIMAL AORTIC ARCH (4.3 CM).
== END | disposition home or self-care (01) ==
LOC: RADCTMAIN 16:30
PROVIDERS: ATTEND Internal Medicine
DX: I71.2 Thoracic aortic aneurysm, without rupture (principal)
CPT/HCPCS: 71250

== ENCOUNTER → 2020-01-08 | Outpatient (CLI) | payer MEDICAID ==
--- NOTE | 2020-01-13 08:33 | MM ---
Reason for exam: screening (asymptomatic). Last mammogram was performed 1 year and 2 months ago. History: Patient is postmenopausal. Family history of premenopausal breast cancer in sister at age 42 and premenopausal breast cancer in aunt at age 48. Benign right US cyst aspiration of the right breast, February 16, 2005. Took hormonal contraceptives for 15 years. Taking estrogen for 2 years. Taking progesterone for 2 years. Taking other hormone for 2 years. Physical Findings: A clinical breast exam by your physician is recommended on an annual basis and results should be correlated with mammographic findings. MG 3D Screening Mammo W/Cad Bilateral CC and MLO view(s) were taken. Prior study comparison: November 07, 2018, bilateral MG 3d screening mammo w/cad. September 20, 2017, bilateral MG 3d screening mammo w/cad. There are scattered fibroglandular densities. Finding: There is an intermediate concern, suspicious equal density (isodense), circumscribed lobulated mass located 7 cm from the nipple in the upper outer quadrant, middle position of the left breast. New finding since September 20, 2017 and November 07, 2018. ASSESSMENT: Incomplete: need additional imaging evaluation, BI-RAD 0 RECOMMENDATION: Special view mammogram of the left breast. If lesion persists on supplemental views, image directed ultrasound is recommended. [facility] will attempt to contact patient to return for supplemental views and ultrasound if indicated.
== END | disposition home or self-care (01) ==
LOC: RADMAMWWP 13:47
PROVIDERS: ATTEND Obstetrics & Gynecology
DX: Z12.31 Encounter for screening mammogram for malignant neoplasm of breast (principal); Z80.3 Family history of malignant neoplasm of breast
CPT/HCPCS: 77063; 77067

== ENCOUNTER → 2020-01-14 | Outpatient (CLI) | payer MEDICAID ==
--- NOTE | 2020-01-14 10:19 | MM ---
Reason for exam: additional evaluation requested from abnormal screening. Last mammogram was performed less than 1 month ago. History: Patient is postmenopausal. Family history of premenopausal breast cancer in sister at age 42 and premenopausal breast cancer in aunt at age 48. Benign right US cyst aspiration of the right breast, February 16, 2005. Took hormonal contraceptives for 15 years. Taking estrogen beginning at age 56. Taking progesterone beginning at age 56. Taking other hormone for 2 years. Physical Findings: Nurse did not find any significant physical abnormalities on exam. MG 3D Work Up W/Cad LT CC and MLO view(s) were taken of the left breast. Prior study comparison: January 08, 2020, bilateral MG 3d screening mammo w/cad. November 07, 2018, bilateral MG 3d screening mammo w/cad. The breast tissue is heterogeneously dense. This may lower the sensitivity of mammography. Finding: There is a 6 mm mass in the 12 o'clock upper quadrant, central position of the left breast. These results were verbally communicated with the patient and result sheet given to the patient on 01/14/20. ASSESSMENT: Incomplete: need additional imaging evaluation, BI-RAD 0 RECOMMENDATION: Ultrasound of the left breast.
--- NOTE | 2020-01-14 10:20 | USB ---
Reason for exam: additional evaluation requested from abnormal screening. History: Patient is postmenopausal. Family history of premenopausal breast cancer in sister at age 42 and premenopausal breast cancer in aunt at age 48. Benign right US cyst aspiration of the right breast, February 16, 2005. Took hormonal contraceptives for 15 years. Taking estrogen beginning at age 56. Taking progesterone beginning at age 56. Taking other hormone for 2 years. US Breast Workup Limited LT Left limited breast ultrasound including focal area of concern, retroareolar and axilla demonstrates a 5 x 3 x 6mm lobular, cystic lesion at 12 o'clock. These results were verbally communicated with the patient and result sheet given to the patient on 01/14/20. ASSESSMENT: Probably benign, BI-RAD 3 RECOMMENDATION: Follow-up diagnostic mammogram of the left breast in 6 months.
== END | disposition home or self-care (01) ==
LOC: RADMAMWWP 09:00
PROVIDERS: ATTEND Obstetrics & Gynecology
DX: R92.8 Other abnormal and inconclusive findings on diagnostic imaging of breast (principal)
CPT/HCPCS: 77061; 77065

== ENCOUNTER 2020-01-30 06:24 | Day surgery (SDC) | payer MEDICAID ==
[2020-01-29 09:00] VITALS: BMI 34.5
--- NOTE | 2020-01-30 02:02 | P.GSHP ---
History of Present Illness H&P Date: 01/30/20 CHIEF COMPLAINT: Abdominal wall mass HISTORY OF PRESENT ILLNESS: The patient is a 59 year-old female with history of mass along the abdominal wall lesion. She presents today for surgical excision. PAST MEDICAL HISTORY: Please see list. PAST SURGICAL HISTORY: Please see list. MEDICATIONS: Please see list. ALLERGIES: Please see list. SOCIAL HISTORY: No illicit drug use FAMILY HISTORY: No reports of Crohn disease or ulcerative colitis. REVIEW OF ORGAN SYSTEMS: CONSTITUTIONAL: No reports of fevers or chills. GI: Denies any blood in stools or constipation. PHYSICAL EXAM: VITAL SIGNS: Stable SKIN: Well perfused. Good skin turgor. 3 cm lesion overlying the abdominal wall. Musculoskeletal: No clubbing cyanosis or edema GENERAL: Well developed and in no acute distress. Pleasant. HEENT: No sclera icterus. Extraocular movements grossly intact. Moist buccal mucosa. Head is atraumatic, normocephalic. Hears conversational speech. No nasal drainage. NECK: Supple without lymphadenopathy. No JV distention. CHEST: Non-labored respirations and equal bilateral excursions. CARDIOVASCULAR: Regular rate and rhythm. Palpable 2+ radial pulses. ABDOMEN: Soft. Non-tender. Nondistended. NEUROLOGIC: No focal or lateralizing signs. PSYCH: Appropriate affect. Alert and oriented to person, place and time. ASSESSMENT: 1. Mass along abdominal wall. PLAN: 1. Will proceed of excision of subcutaneous tumor along the abdominal wall 2. DVT prophylaxis. 3. Antibiotic prophylaxis. 4. Time of recovery, at least one week. Past Medical History Past Medical History: Deep Vein Thrombosis (DVT), GERD/Reflux, Hypertension, Mitral Valve Prolapse (MVP), Skin Disorder Additional Past Medical History / Comment(s): Hx blood clot lt iliac. Thoracic aortic aneurysm. Hiatal hernia. Hx fall w/ cervical fx; chronic neck pain. Cyst upper abdomen. History of Any Multi-Drug Resistant Organisms: None Reported Past Surgical History: Bladder Surgery, Hysterectomy, Orthopedic Surgery Additional Past Surgical History / Comment(s): fx jaw surgery, uterine suspension, right knee arthroscopy, sinus surgery, ORIF LEFT HUMERUS AND LEFT WRIST, nasal fx repair Past Anesthesia/Blood Transfusion Reactions: Previous Problems w/ Anesthesia Additional Past Anesthesia/Blood Transfusion Reaction / Comment(s): Woke up during EGD, wrist surg Smoking Status: Former smoker - Past Family History Mother Family Medical History: Dementia, Thyroid Disorder Father Family Medical History: No Reported History Medications and Allergies Home Medications Medication Instructions Recorded Confirmed Type Cetirizine HCl [Zyrtec] 10 mg PO DAILY 12/20/13 01/29/20 History Cyclobenzaprine [Flexeril] 10 mg PO BID PRN 12/20/13 01/29/20 History Omeprazole 40 mg PO AC-BRKFST 12/20/13 01/29/20 History clonazePAM [KlonoPIN] 0.5 mg PO HS 12/20/13 01/29/20 History Hydrochlorothiazide 12.5 mg PO DAILY 07/08/15 01/29/20 History [hydroCHLOROthiazide] lisinopriL [Zestril] 20 mg PO DAILY 07/08/15 01/29/20 History Metoclopramide [Reglan] 10 mg PO BID PRN 07/15/15 01/29/20 History Calcium Carbonate/Vitamin D3 1 each PO DAILY 01/25/17 01/29/20 History [Calcium 600-Vit D3 400 Tablet] Progesterone, Micronized 100 mg PO HS 01/25/17 01/29/20 History [Progesterone] Dim (Hormone Supplement) 1 cap PO HS 12/19/17 01/29/20 History Multivitamin [Multivitamins Adult 2 each PO HS 12/19/17 01/29/20 History Gummies] Elderberry Gummies 2 each PO HS 01/29/20 History Allergies Allergy/AdvReac Type Severity Reaction Status Date / Time ondansetron HCl AdvReac was told Verified 01/29/20 08:45 [From Zofran (as to avoid hydrochloride)] d/t prolonged QT on EKG
[~2020-01-30 06:24] MED LIST: ACETAMINOPHEN TAB 500 MG TAB PO STA; DEXAMETHASONE SOD PHOSPHATE 4 MG/ML 1 ML VIAL IV ONE; GABAPENTIN 300 MG CAP PO STA; HEPARIN SODIUM,PORCINE 5,000 UNIT/ML 1 ML VIAL SQ STA; HYDROmorphone 0.5 MG/0.5 ML SYRINGE IVP PRN; LACTATED RINGERS 1,000 ML IV SCH; LIDOCAINE 1% (10MG/ML) FOR IV START INTRADERMA PRN; Pre Op ABX Message 1 EACH MISC MISCELLANE ONE; SCOPOLAMINE 1.5MG/72HR PATCH TRANSDERM STA
[2020-01-30] MEDS ORDERED: MELOXICAM 7.5 MG TAB PO ONE (06:30)
[2020-01-30 07:05] VITALS: TEMP 98.1
[2020-01-30 07:08] LABS: Basophils # (A) 0.1 k/uL (0-0.2); Basophils % (A) 1 %; Eosinophils # (A) 0.4 k/uL (0-0.7); Eosinophils % (A) 6 %; HCT 39.3 % (34.0-46.0); HGB 13.4 gm/dL (11.4-16.0); Lymphocytes # (A) 1.7 k/uL (1.0-4.8); Lymphocytes % (A) 23 %; MCH 28.7 pg (25.0-35.0); MCV 84.5 fL (80.0-100.0); Mean Platelet Volume 6.4; Monocytes # (A) 0.4 k/uL (0-1.0); Monocytes % (A) 6 %; Neutrophils # (A) 4.8 k/uL (1.3-7.7); Neutrophils % (A) 64 %; Platelet Count 360 k/uL (150-450); RBC 4.65 m/uL (3.80-5.40); RDW 13.2 % (11.5-15.5); WBC 7.5 k/uL (3.8-10.6)
[2020-01-30 07:17] LABS: ALT 22 U/L (4-34); AST 35 U/L (14-36); African American GFR (CKD) >90 (>60 ml/min/1.73 sqM); Albumin 4.5 g/dL (3.5-5.0); Alkaline Phosphatase 52 U/L (38-126); Anion Gap 8 mmol/L; Blood Urea Nitrogen 19 mg/dL (7-17); Carbon Dioxide 26 mmol/L (22-30); Chloride 103 mmol/L (98-107); Glucose 107 mg/dL (74-99); Non-African American GFR(CKD) 89 (>60 ml/min/1.73 sqM); Potassium 4.2 mmol/L (3.5-5.1); Sodium 137 mmol/L (137-145); Total Bilirubin 0.6 mg/dL (0.2-1.3); Total Protein 7.5 g/dL (6.3-8.2)
[2020-01-30] MEDS ORDERED: diphenhydrAMINE 50 MG/ML 1 ML VIAL ONE (07:34)
[2020-01-30] MEDS ORDERED: fentaNYL (PF) 50 MCG/ML 2 ML AMP ONE (07:34)
[2020-01-30] MEDS ORDERED: PROPOFOL 10 MG/ML 20 ML VIAL IV ONE (07:34)
[2020-01-30] MEDS ORDERED: LIDOCAINE 1% INJ 10MG/ML (20 ML MDV) ONE (07:34)
[2020-01-30] MEDS ORDERED: MIDAZOLAM 2 MG/2 ML VIAL ONE (07:34)
[2020-01-30] MEDS ORDERED: LIDOCAINE 1%-EPI 1:100,000 20 ML VIAL SQ ONE (07:39)
[2020-01-30] MEDS ORDERED: KETOROLAC 15 MG/ML 1 ML VIAL IVP PRN (08:38)
[2020-01-30] MEDS ORDERED: oxyCODONE-APAP 5-325MG 1 EACH TAB PO PRN (08:39)
--- NOTE | 2020-01-30 08:48 | P.OP ---
Date of Procedure: 01/30/20 Description of Procedure: SURGEON: JESSICA GRAHAM MD RETAIL SHIFT LEADER: NONE. PREOPERATIVE DIAGNOSES: 1. Abdominal wall cyst 2. Hypertensive heart disease 3. Blood clotting disorder 4. Thoracic artery aneurysm 5. Gastroesophageal reflux disease 6. Chronic pain syndrome POSTOPERATIVE DIAGNOSES: 1. Abdominal wall cystm 4 x 2 cm 2. Hypertensive heart disease 3. Blood clotting disorder 4. Thoracic artery aneurysm 5. Gastroesophageal reflux disease 6. Chronic pain syndrome OPERATION: 1. Excision of abdominal wall deep upper abdominal wall subcutaneous cyst 4 x 2 cm. 2. Intermediatte closure of the 6 cm. ANESTHESIA: IV sedation and local ESTIMATED BLOOD LOSS: 5 mL. SPECIMENS REMOVED: 1. Abdominal wall mass, 4 x 2 cm COMPLICATIONS: None. FINDINGS: 1. Abdominal wall mass involving the deep subcutaneous tissue 2. Intermediate closure of 6 cm incision INDICATIONS: The patient is a 59-year-old female who presents with Upper abdominal wall mass with recurrent infection as well as pain and swelling. Surgical options, including excision was discussed. Benefits and risks were described. Informed consent was obtained. DESCRIPTION OF PROCEDURE: In the pre-operative area, the mass was palpated and marked with indelible marker. Patient was brought into the operating room, laid in supine position. After sedation, the abdomen was prepped and draped in standard sterile fashion using ChloraPrep. A timeout protocol was confirmed with the surgical team regarding patient's name including procedures to be performed. Preoperative medications was administered. Local anesthetic was infiltrated along the skin after placing horizontal elliptical marking area over the abdominal wall mass. Using #15 blade, 4 x 2 cm incision was made into the deep subcutaneous tissue. The abdominal mass was palpated and dissected circumferentially using Bovie cautery. Hemostasis was checked with electro-Bovie cautery. The specimen was passed off. The wound pocket was irrigated with dilute hydrogen peroxide. Next the wound was closed in layers using 0-Vicryl for the deep subcutaneous tissue. The skin was cleansed. For the dermis, 4-0 Monocryl was placed along the length of the incision. Exofin tape was applied over the incision and with Optifoam. At the end of the procedure, needle, sponge, and instrument count had been verified correct by the surgical aide. The patient was taken to the postanesthesia care unit in stable condition. Plan - Discharge Summary Discharge Rx Participant: Yes New Discharge Prescriptions: New Ibuprofen [Motrin] 600 mg PO Q8HR PRN #30 tab PRN Reason: Pain Acetaminophen Tab [Tylenol Tab] 1,000 mg PO Q6HR PRN #30 tablet PRN Reason: Pain Continue clonazePAM [KlonoPIN] 0.5 mg PO HS Omeprazole 40 mg PO AC-BRKFST Cyclobenzaprine [Flexeril] 10 mg PO BID PRN PRN Reason: Muscle Pain Cetirizine HCl [Zyrtec] 10 mg PO DAILY lisinopriL [Zestril] 20 mg PO DAILY Hydrochlorothiazide [hydroCHLOROthiazide] 12.5 mg PO DAILY Metoclopramide [Reglan] 10 mg PO BID PRN PRN Reason: NAUSEA, ABD PAIN Calcium Carbonate/Vitamin D3 [Calcium 600-Vit D3 400 Tablet] 1 each PO DAILY Progesterone, Micronized [Progesterone] 100 mg PO HS Multivitamin [Multivitamins Adult Gummies] 2 each PO HS Dim (Hormone Supplement) 1 cap PO HS Elderberry Gummies 2 each PO HS Discharge Medication List Cetirizine HCl [Zyrtec] 10 mg PO DAILY 12/20/13 [History] Cyclobenzaprine [Flexeril] 10 mg PO BID PRN 12/20/13 [History] Omeprazole 40 mg PO AC-BRKFST 12/20/13 [History] clonazePAM [KlonoPIN] 0.5 mg PO HS 12/20/13 [History] Hydrochlorothiazide [hydroCHLOROthiazide] 12.5 mg PO DAILY 07/08/15 [History] lisinopriL [Zestril] 20 mg PO DAILY 07/08/15 [History] Metoclopramide [Reglan] 10 mg PO BID PRN 07/15/15 [History] Calcium Carbonate/Vitamin D3 [Calcium 600-Vit D3 400 Tablet] 1 each PO DAILY 01/25/17 [History] Progesterone, Micronized [Progesterone] 100 mg PO HS 01/25/17 [History] Dim (Hormone Supplement) 1 cap PO HS 12/19/17 [History] Multivitamin [Multivitamins Adult Gummies] 2 each PO HS 12/19/17 [History] Elderberry Gummies 2 each PO HS 01/29/20 [History] Acetaminophen Tab [Tylenol Tab] 1,000 mg PO Q6HR PRN #30 tablet 01/30/20 [Rx] Ibuprofen [Motrin] 600 mg PO Q8HR PRN #30 tab 01/30/20 [Rx] Follow up Appointment(s)/Referral(s): Jessica Graham MD [STAFF PHYSICIAN] - 02/04/20 Patient Instructions/Handouts: Excision of Skin Lesion (DC) Activity/Diet/Wound Care/Special Instructions: See instructions on dressing. DO NOT REMOVE DRESSING. No lifting over 10 pounds in 2 weeks, Feb 12June shower. No bath tub soaks for two weeks, Feb 12 Diet as tolerated. Notify surgeon for temperature over 101.5, increased redness along incision, increased pain along surgical site. Use Tylenol and ibuprofen or Aleve scheduled for the next 24-48 hours for best pain relief. Use ice along incisions for the today to prevent swelling. Discharge Disposition: HOME SELF-CARE
[2020-01-30 10:06] VITALS: BP 125/82; PULSE 79; RESP 18
== END 2020-01-30 10:29 | disposition home or self-care (01) ==
LOC: OR 06:24
PROVIDERS: ATTEND Surgery Plastic and Reconstructive Surgery
DX: L72.8 Other follicular cysts of the skin and subcutaneous tissue (principal); I11.9 Hypertensive heart disease without heart failure; D68.9 Coagulation defect, unspecified; I71.2 Thoracic aortic aneurysm, without rupture; K21.9 Gastro-esophageal reflux disease without esophagitis; G89.4 Chronic pain syndrome; Z79.890 Hormone replacement therapy; Z79.899 Other long term (current) drug therapy; Z88.8 Allergy status to other drugs, medicaments and biological substances; Z90.710 Acquired absence of both cervix and uterus; Z98.890 Other specified postprocedural states
CPT/HCPCS: 88304; 88305; 80053; 85025; 11404; J2250; J1200; J1644; J1100; J0690; J2001; J3010; J1885; J2704

== ENCOUNTER → 2020-02-19 | Outpatient (CLI) | payer MEDICAID ==
--- NOTE | 2020-02-21 08:10 | BD ---
EXAMINATION TYPE: Axial Bone Density DATE OF EXAM: 02/19/2020 COMPARISON: 08/10/2016 CLINICAL HISTORY: Postmenopausal female. Height: 64 IN Weight: 220 LBS FRAX RISK QUESTIONS: History of Fracture in Adulthood: LT ELBOW/ LT WRIST /C-SPINE FX Secondary Osteoporosis: 3. Menopause before 45: PARTIAL HYST AGE 36 RISK FACTORS HISTORY OF: History of Wrist Fracture: LT AGE 56 Surgery to Wrist (left): 2017 Family History of Osteoporosis: MOTHER Active: YES Diet low in dairy products/other sources of calcium: YES Postmenopausal woman: YES PARTIAL HYST AGE 36 Take estrogen and/or progesterone medications: PELLET AND TAKE PROGESTERONE SINCE 2016 MEDICATIONS: Additional Medications: CALCIUM, VIT D, LISINOPRIL, HCTZ, PRILOSEC, ZYRTEC,FLEXERIL, PROGESTERONE, MU LTI VIT EXAM MEASUREMENTS: Bone mineral densitometry was performed using the [employer] System. Bone mineral density as measured about the Lumbar spine is: ----- L1-L4(G/cm2): 1.032 T Score Values are as follows: ----- L2: -1.5 ----- L3: -1.5 ----- L4: -0.1 ----- L1-L4: -1.2 Bone mineral density has: Increased 10.4% since study of: 08/10/2016 Bone mineral density about the R hip (g/cm2): 0.948 Bone mineral density about the L hip (g/cm2): 1.010 T Score values are as follows: -----R Neck: -0.6 -----L Neck: -0.2 -----R Total: -0.1 -----L Total: 0.8 Bone mineral density has: Increased 3.3% since study of: 08/10/2016 IMPRESSION: Osteopenia (T Score between -2.5 and -1) remains present. Bone density improved from prior. There remains slightly increased risk of fracture and the patient may be considered for treatment. Re-Screen 2-5 years. NOTE: T-SCORE=SD OF THE YOUNG ADULT MEAN.
== END | disposition home or self-care (01) ==
LOC: RADBDWWP 16:24
PROVIDERS: ATTEND Obstetrics & Gynecology
DX: M85.80 Other specified disorders of bone density and structure, unspecified site (principal)
CPT/HCPCS: 77080

== ENCOUNTER → 2020-03-25 | Outpatient (CLI) | payer MEDICAID ==
--- NOTE | 2020-03-25 16:11 | MR ---
EXAMINATION TYPE: MR lumbar spine wo con DATE OF EXAM: 03/25/2020 COMPARISON: CT 03/25/2020 HISTORY: pain in left lower leg and hip x3 months TECHNIQUE: Multiplanar, multisequence images of the lumbar spine were acquired. L1-L2: Mild posterior disc bulge causes slight anterior mass effect on the thecal sac. No significant foraminal encroachment. L2-L3: Posterior broad-based disc bulge effaces the anterior thecal sac. No significant foraminal enc roachment L3-L4: Posterior disc bulge effaces the anterior thecal sac. There is some facet arthropathy with hyp ertrophy ligamentum flavum causing posterior lateral mass effect on the thecal sac. No significant fo raminal encroachment. L4-L5: Posterior disc bulge causes effacement of anterior thecal sac. Circumference extension endplat e disc complex encroaches somewhat on the foramina greater on the right. There is some mild facet art hropathy change. L5-S1: Facet arthropathy changes are present. Listhesis contributes to cause some encroachment on the foramina greater on the left than on the right. No evident disc herniation. Lumbar segments are intact. No paraspinal masses are identified. Conus medullaris has a normal appe arance. Anterolisthesis grade 1 L5-S1. Some loss of disc height signal is greatest at L3-4, L2-3. The re is mild multilevel spondylosis, endplate discogenic marrow signal change. T12 shows hyperintensity at the superior endplate towards the left of midline consistent with hemangioma, L2 shows a similar focus. There is no significant spinal stenosis. IMPRESSION: Mild degenerative disc disease, facet arthropathy as described. Listhesis as noted on CT L5-S1.
== END | disposition home or self-care (01) ==
LOC: RADMRIMAIN 12:45
PROVIDERS: ATTEND Orthopaedic Surgery
DX: M43.17 Spondylolisthesis, lumbosacral region (principal); M51.36 Other intervertebral disc degeneration, lumbar region; M47.816 Spondylosis without myelopathy or radiculopathy, lumbar region
CPT/HCPCS: 72148

== ENCOUNTER → 2020-03-25 | Outpatient (CLI) | payer MEDICAID ==
--- NOTE | 2020-03-25 13:22 | CT ---
EXAMINATION TYPE: CT lumbar spine wo con DATE OF EXAM: 03/25/2020 COMPARISON: Lumbar spine 03/11/2020 plain film HISTORY: left leg pain CT DLP: 1224.9 mGycm Automated exposure control for dose reduction was used. An unenhanced CT of the lumbar spine was performed. Bone and soft tissue window settings are submitt ed as well as coronal and sagittal reconstructions. FINDINGS: Lumbar vertebral bodies show preserved height and alignment. There is a minimal anterolisthesis grade 1 L5-S1. Multilevel spondylosis is present. Some mild loss of disc height greatest at L3-4, L2-3. Sc lerosis present in the posterior elements of the lower lumbar spine is consistent with facet arthropa thy. No significant spinal stenosis. L1-L2: Normal disc space height. No disc herniation protrusion or central stenosis. No facet joint arthropathy. No evidence for foraminal encroachment. L2-L3: Posterior disc bulge effaces the anterior thecal sac. No significant foraminal encroachment. L3-L4: Posterior broad-based disc bulge effaces the anterior thecal sac. Mild encroachment of the dis c material on the neural foramina. L4-L5: Posterior broad-based disc bulge effaces the anterior thecal sac. Circumferential extension di sc material extends to cause some foraminal encroachment. L5-S1: Listhesis contributes to cause some foraminal encroachment, circumferential extension of disc material. IMPRESSION: No paraspinal masses are identified. Lumbar segments are intact. Degenerative disc disease, facet ar thropathy
== END | disposition home or self-care (01) ==
LOC: RADCTMAIN 12:52
PROVIDERS: ATTEND Orthopaedic Surgery
DX: M51.36 Other intervertebral disc degeneration, lumbar region (principal); M47.816 Spondylosis without myelopathy or radiculopathy, lumbar region
CPT/HCPCS: 72131

== ENCOUNTER 2020-04-21 06:34 | Day surgery (SDC) | payer MEDICAID ==
[2020-04-20 12:08] VITALS: BMI 36.4
[~2020-04-21 06:34] MED LIST changes: -ACETAMINOPHEN TAB 500 MG TAB PO STA; -DEXAMETHASONE SOD PHOSPHATE 4 MG/ML 1 ML VIAL IV ONE; -GABAPENTIN 300 MG CAP PO STA; -HEPARIN SODIUM,PORCINE 5,000 UNIT/ML 1 ML VIAL SQ STA; -HYDROmorphone 0.5 MG/0.5 ML SYRINGE IVP PRN; -LIDOCAINE 1% (10MG/ML) FOR IV START INTRADERMA PRN; -Pre Op ABX Message 1 EACH MISC MISCELLANE ONE; -SCOPOLAMINE 1.5MG/72HR PATCH TRANSDERM STA
[2020-04-21 06:58] VITALS: TEMP 97.8
[2020-04-21] MEDS ORDERED: LACTATED RINGERS 1,000 ML IV ONE (06:58)
[2020-04-21] MEDS ORDERED: LIDOCAINE 1% (10MG/ML) FOR IV START INTRADERMA ONE (07:05)
[2020-04-21] MEDS ORDERED: MIDAZOLAM 2 MG/2 ML VIAL ONE (07:24)
[2020-04-21] MEDS ORDERED: fentaNYL (PF) 50 MCG/ML 2 ML AMP ONE (07:24)
[2020-04-21] MEDS ORDERED: IOPAMIDOL M200 10 ML VIAL ONE (07:24)
[2020-04-21] MEDS ORDERED: methylPREDNISolone ACETATE 40 MG/ML 1 ML VIAL ONE (07:24)
--- NOTE | 2020-04-21 07:41 | P.PCN ---
Date of Procedure: 04/21/20 Procedure(s) Performed: PREOPERATIVE DIAGNOSIS: 1- Lumbar radiculopathy . 2-lumbar spondylosis facet arthropathy. POSTOPERATIVE DIAGNOSIS: Same as preoperative diagnoses. PROCEDURE 1. Transforaminal epidural steroid injection under fluoroscopic guidance at left L5-S1 level. (Fluoroscopy images stored on file in the radiology Department ) 2. Lumbar epidurogram . ANESTHESIA: Local with 1% lidocaine 3 ml , moderate sedation with intravenous V ersed 1 mg and fentanyle 50 micrograms. EBL: Minimal PROCEDURE INDICATION: The patient with low back pain and radiculopathy symptoms unresponsive to conservative treatment. PROCEDURE DESCRIPTION / TECHNIQUE: The patient was seen and identified in the preoperative area. Risks, benefits, complications, and alternatives were discussed with the patient. The patient agreed to proceed with the procedure and signed the consent. IV was started, and vital signs were stable. Patient was taken to the OR and time out was completed. The patient was placed in the prone position on procedure table and a pillow was placed under the abdomen to reduce lumbar lordosis. The lumbosacral area was prepped and draped in the usual sterile fashion. Critical pause was taken. Vital signs were closely monitored during the procedure. Conscious sedation was used during the procedure to decrease patient s anxiety. Using oblique fluoroscopy, the chin of the ``Jasper dog at Left L5-S1 level was identified, and the skin and deeper tissues just below was localized with 1% lidocaine. Subsequently, a 22-gauge 5-inch spinal needle was advanced under a tunneled view fluoroscopic guidance just underneath the chin of the ``Jasper dog at the left L5-S1 Under lateral fluoroscopy, the needle was then advanced to the posterior border of the interforaminal space. After negative aspiration of CSF and blood and with no paresthesias, 1 mL Isovue 200 contrast dye was injected excellent epidurogram and outlining of the nerve root Subsequently, 3 mL of block solution containing 80 mg Depo-Medrol and 2 mL of 0.9% normal saline PF was injected. Needle was removed . At the end of the procedure, skin was cleansed, and bandages were applied. COMPLICATIONS:none DISPOSITION / PLANS: The patient was placed in a supine position and transferred to the recovery area in a stable condition for observation. There was no evidence of lower extremity motor or sensory deficit after the procedure. Patient was discharged from the recovery room after meeting discharge criteria. Home discharge instructions were given to the patient by the staff. The patient was reexamined prior to discharge.
[2020-04-21] MEDS ORDERED: IV FLUID CONTINUATION 1,000 ML IV ONE (07:42)
[2020-04-21 07:45] VITALS: RESP 16
[2020-04-21 08:01] VITALS: BP 117/74; PULSE 80
--- NOTE | 2020-04-21 08:40 | FL ---
EXAMINATION TYPE: FL guided pain mgmt statistic DATE OF EXAM: 04/21/2020 CLINICAL HISTORY: Low back pain. TECHNIQUE: Fluoroscopy. COMPARISON: None. FINDINGS: Fluoroscopic guidance was provided during pain relief procedure performed by Dr. Adkins . A total of 8 seconds of fluoroscopic time was utilized during the procedure and 1 spot images are acquired. Single image acquired shows needle localization needle localization at the left L4-L5 leve l with contrast injection. IMPRESSION: As Above.
== END 2020-04-21 08:15 | disposition home or self-care (01) ==
LOC: ORPAIN 06:34
PROVIDERS: ATTEND Specialist
DX: M47.26 Other spondylosis with radiculopathy, lumbar region (principal); Z88.8 Allergy status to other drugs, medicaments and biological substances
CPT/HCPCS: 64483; J2250; J1030; J3010; Q9966; 99152

== ENCOUNTER → 2020-04-24 | Outpatient (CLI) | payer MEDICAID ==
--- NOTE | 2020-04-24 23:58 | MR ---
EXAMINATION TYPE: MR knee LT wo con DATE OF EXAM: 04/24/2020 COMPARISON: None HISTORY: Left knee pain for 3-4 months. Multiplanar multiecho imaging of the left knee was performed without contrast. The anterior and posterior cruciate ligaments appear intact. There is knee joint effusion. There is 4 .5 x 2.5 cm popliteal cyst. There is oblique tear through the posterior horn medial meniscus. Anterior horn medial meniscus appea rs intact. The lateral meniscus is intact. There is no evidence of a fracture. Collateral ligaments a re intact. There is some spurring of the medial femoral and tibial condyles. I see no bony destructiv e process. There is subcutaneous edema anterior to the knee. IMPRESSION: Oblique thickness tear of the posterior horn medial meniscus. Joint effusion with popliteal cyst. No evidence of ligamentous tear. Subcutaneous edema.
== END | disposition home or self-care (01) ==
LOC: RADMRIMAIN 19:13
PROVIDERS: ATTEND Orthopaedic Surgery
DX: S83.242A Other tear of medial meniscus, current injury, left knee, initial encounter (principal); M25.462 Effusion, left knee; M71.22 Synovial cyst of popliteal space [Baker], left knee; R60.0 Localized edema

== ENCOUNTER → 2020-05-07 | Outpatient (CLI) | payer MEDICAID ==
[2020-05-07 15:53] LABS: Potassium 4.6 mmol/L (3.5-5.1)
[2020-05-07 15:59] LABS: Basophils # (A) 0.1 k/uL (0-0.2); Basophils % (A) 1 %; Eosinophils # (A) 0.2 k/uL (0-0.7); Eosinophils % (A) 3 %; HCT 41.7 % (34.0-46.0); HGB 13.9 gm/dL (11.4-16.0); Lymphocytes # (A) 1.6 k/uL (1.0-4.8); Lymphocytes % (A) 25 %; MCH 28.2 pg (25.0-35.0); MCHC 33.4 g/dL (31.0-37.0); MCV 84.2 fL (80.0-100.0); Mean Platelet Volume 6.4; Monocytes # (A) 0.4 k/uL (0-1.0); Monocytes % (A) 7 %; Neutrophils # (A) 4.1 k/uL (1.3-7.7); Neutrophils % (A) 63 %; Platelet Count 327 k/uL (150-450); RBC 4.95 m/uL (3.80-5.40); RDW 12.8 % (11.5-15.5); WBC 6.4 k/uL (3.8-10.6)
== END | disposition home or self-care (01) ==
LOC: LABPAT 15:10
PROVIDERS: ATTEND Orthopaedic Surgery
DX: M23.92 Unspecified internal derangement of left knee (principal)
CPT/HCPCS: 36415; 80051; 85025; 93005

== ENCOUNTER 2020-05-11 13:18 | Day surgery (SDC) | payer MEDICAID ==
[2020-05-07 15:01] VITALS: BMI 36.6
--- NOTE | 2020-05-10 13:10 | HP ---
HISTORY AND PHYSICAL REASON FOR ADMISSION: Surgery 05/11/2020 HISTORY OF PRESENT ILLNESS: Marie Payne is a 59-year-old patient seen with progressive left knee pain. Options for treatment were discussed with her. She elected to proceed with left knee arthroscopy. Consent was obtained. PAST MEDICAL HISTORY: Gastroesophageal reflux disease, hypertension, osteoarthritis. SURGICAL HISTORY: Colonoscopy, hysterectomy, surgery, jaw surgery, right knee arthroscopy. MEDICATIONS: Hydrochlorothiazide, lisinopril, omeprazole, Zyrtec. ALLERGIES: None. SOCIAL HISTORY: She denies tobacco use. PHYSICAL EXAMINATION: Evaluation of the left knee: Range of motion 0-125. Mild effusion. Tenderness medial joint line. Positive medial Bernarda's. Ligaments stable. Hip rotation without pain. Distal neurovascular exam is intact. RADIOGRAPHS: Left knee radiographs revealed mild osteoarthritic changes. Left knee MRI revealed medial meniscal tear. IMPRESSION: 1. Internal derangement of left knee with medial meniscal tear. 2. Hypertension. 3. Gastroesophageal reflux disease. PLAN: Left knee arthroscopy with partial meniscectomy and debridement. Surgery 05/11/2020. MMODL / IJN: [id number] /
[~2020-05-11 13:18] MED LIST changes: +DEXAMETHASONE SOD PHOSPHATE 4 MG/ML 1 ML VIAL IV ONE; +MIDAZOLAM 2 MG/2 ML VIAL IV PRN
[2020-05-11 13:51] VITALS: RESP 16; TEMP 98.5
[2020-05-11] MEDS ORDERED: LIDOCAINE 1% (10MG/ML) FOR IV START INTRADERMA ONE (14:00)
[2020-05-11] MEDS ORDERED: PROPOFOL 10 MG/ML 20 ML VIAL IV ONE (15:37)
[2020-05-11] MEDS ORDERED: MIDAZOLAM 2 MG/2 ML VIAL ONE (15:37)
[2020-05-11] MEDS ORDERED: LIDOCAINE 1% INJ 10MG/ML (20 ML MDV) ONE (15:37)
[2020-05-11] MEDS ORDERED: fentaNYL (PF) 50 MCG/ML 2 ML AMP ONE (15:37)
[2020-05-11] MEDS ORDERED: BUPIVACAINE (PF) 0.25% 30 ML VIAL INTRAARTIC ONE ×2 (16:06→16:16)
[2020-05-11] MEDS: HYDROmorphone 0.5 MG/0.5 ML SYRINGE IVP PRN ×4 (16:28→16:56)
--- NOTE | 2020-05-11 16:35 | P.OP ---
Date of Procedure: 05/11/20 Preoperative Diagnosis: Internal derangement left knee Postoperative Diagnosis: 1. Complex tear medial meniscus left knee 2. Grade 3 chondromalacia medial femoral condyle left knee 3. Reactive synovitis medial, lateral and suprapatellar compartments left knee Procedure(s) Performed: 1. Arthroscopic partial medial meniscectomy left knee 2. Arthroscopic chondroplasty medial femoral condyle left knee 3. Arthroscopic partial synovectomy medial, lateral and suprapatellar compartments left knee Anesthesia: GETA, local Surgeon: Daniele Kaufman Estimated Blood Loss (ml): 11 Pathology: none sent Condition: stable Disposition: PACU Indications for Procedure: 59-year-old patient seen with progressive left knee pain. After treatment options were discussed, she elected to proceed with arthroscopy. Operative Findings: See description of procedure Description of Procedure: Patient was taken to the operative suite. Patient underwent a general anesthetic by the department of anesthesia. Patient was given preoperative antibiotics. The left lower extremity was placed in a well-padded arthroscopic leg staley. The left leg was prepped and draped in the normal sterile orthopedic fashion. A lateral parapatellar and suprapatellar incision was made. Trochars were inserted. Arthroscopy was initiated. Suprapatellar pouch revealed diffuse thick reactive synovitis. The patellofemoral joint appeared to articulate congruently. There was grade 1/2 chondromalacia with no osteochondral tears present. The scope was guided into the medial gutter. No loose bodies or plica were identified. The scope was then guided into the medial compartment. A medial parapatellar incision was made. Trocar inserted followed by probe. There was a complex tear posterior horn medial meniscus. There were grade 3 chondromalacia changes of the medial femoral condyle with some osteochondral flap tears present. There was thick reactive synovitis anteriorly. I performed a partial medial meniscectomy getting down to stable meniscal tissue. I performed a chondroplasty of the medial femoral condyle getting down to stable osteochondral tissue. I performed a partial synovectomy decompressing thick reactive synovitis. The residual meniscus was probed and found to be stable. The residual osteochondral surface was stable. There was good decompression of the synovitis. Scope and probe were then guided into the intercondylar notch. Cruciates were identified, probed and found to be stable. The scope and probe were then guided into lateral compartment. The lateral meniscus was probed and found to be stable. There was thick reactive synovitis anteriorly. There were mild grade 1 chondromalacia changes. I introduced a motorized shaver and performed a partial synovectomy decompressing thick reactive synovitis. The shaver was removed. There was good decompression of the synovitis. The scope was in guided back into the suprapatellar compartment. I used a motorized shaver into the suprapatellar compartment. I debrided some piecemeal fragments of meniscus I encountered. I performed a partial synovectomy decompressing the thick reactive synovitis. The shaver was removed. There was good decompression of synovitis. I took one more look on the entire knee, no residual debris. Instruments were now removed from the joint. The joint was infiltrated with .25% Marcaine. Steri-Strips were applied to the p ortal sites. Sterile dressings were applied. The patient was placed into a TYRON hose. No tourniquet was utilized. The patient was awakened, transferred to a bed and taken to recovery stable satisfactory condition.
[2020-05-11] MEDS: fentaNYL (PF) 50 MCG/ML 2 ML AMP IV PRN ×2 (17:06→17:22)
[2020-05-11] MEDS ORDERED: LACTATED RINGERS 1,000 ML IV ONE ×2 (17:07)
[2020-05-11] MEDS ORDERED: KETOROLAC 15 MG/ML 1 ML VIAL IVP ONE (17:08)
[2020-05-11] MEDS ORDERED: HYDROcodone/APAP 7.5-325MG 1 EACH TAB PO ONE ×2 (18:05→18:17)
[2020-05-11] MEDS ORDERED: HYDROcodone/APAP 7.5-325MG 1 EACH TAB ONE (18:13)
[2020-05-11 18:27] VITALS: PULSE 94
[2020-05-11 18:36] VITALS: BP 131/77
== END 2020-05-11 18:52 | disposition home or self-care (01) ==
LOC: OR 13:18
PROVIDERS: ATTEND Orthopaedic Surgery
DX: M23.222 Derangement of posterior horn of medial meniscus due to old tear or injury, left knee (principal); M94.262 Chondromalacia, left knee; M65.862 Other synovitis and tenosynovitis, left lower leg; M17.12 Unilateral primary osteoarthritis, left knee; E11.9 Type 2 diabetes mellitus without complications; I10 Essential (primary) hypertension; K21.9 Gastro-esophageal reflux disease without esophagitis; I71.2 Thoracic aortic aneurysm, without rupture; Z98.890 Other specified postprocedural states; Z90.710 Acquired absence of both cervix and uterus; Z79.899 Other long term (current) drug therapy; Z97.2 Presence of dental prosthetic device (complete) (partial); Z88.8 Allergy status to other drugs, medicaments and biological substances
CPT/HCPCS: 29881; J2250; J1100; J0690; J2001; J3010; J1885; J2704; J1170

== ENCOUNTER → 2020-07-17 | Outpatient (CLI) | payer MEDICAID ==
--- NOTE | 2020-07-17 14:41 | MM ---
Reason for exam: follow-up at short interval from prior study. Last mammogram was performed 6 months ago. History: Patient is postmenopausal. Family history of premenopausal breast cancer in sister at age 42 and premenopausal breast cancer in aunt at age 48. Benign right US cyst aspiration of the right breast, February 16, 2005. Took hormonal contraceptives for 15 years. Taking estrogen beginning at age 56. Taking progesterone beginning at age 56. Taking other hormone for 2 years. Physical Findings: Nurse did not find any significant physical abnormalities on exam. MG 3D Diag Mammo W/Cad LT CC and MLO view(s) were taken of the left breast. Prior study comparison: January 14, 2020, left breast MG 3d work up w/cad LT. January 08, 2020, bilateral MG 3d screening mammo w/cad. There are scattered fibroglandular densities. 6mm nodule is stable at 2 o'clock, 6cm from nipple. These results were verbally communicated with the patient and result sheet given to the patient on 07/17/20. ASSESSMENT: Probably benign, BI-RAD 3 RECOMMENDATION: Follow-up diagnostic mammogram of both breasts in 6 months.
== END | disposition home or self-care (01) ==
LOC: RADMAMWWP 13:12
PROVIDERS: ATTEND Obstetrics & Gynecology
DX: N63.21 Unspecified lump in the left breast, upper outer quadrant (principal); Z78.0 Asymptomatic menopausal state; Z80.3 Family history of malignant neoplasm of breast
CPT/HCPCS: 77061; 77065

== ENCOUNTER → 2020-07-22 | Outpatient (CLI) | payer MEDICAID ==
--- NOTE | 2020-07-23 04:59 | MR ---
EXAMINATION TYPE: MR knee RT wo con DATE OF EXAM: 07/22/2020 COMPARISON: 06/12/2015 HISTORY: Right knee pain. Multiplanar multiecho imaging of the right knee was performed without contrast. There is large knee joint effusion. The anterior and posterior cruciate ligaments appear intact. Ther e is wavy appearance of the posterior cruciate ligament suggestive of ligamentous laxity. There is hy pertrophic spurring of the femoral and tibial condyles. There is severe narrowing of the medial joint space with significant obliteration of the medial meniscus. The collateral ligaments are intact. The lateral meniscus shows no significant displacement. There is spurring on the patella. I see no evide nce of a fracture. There is no focal bone destruction. IMPRESSION: Moderately severe osteoarthritis in the medial joint space that shows significant progression compare d to old exam. Hypertrophic degenerative spurring in the femoral and tibial condyles. There is mild l ateral tibial subluxation. Moderately large knee joint effusion increased compared to old exam. 4 x 1 .5 cm popliteal cyst noted. Extensive abnormality of the medial meniscus with medial and posterior di splacement. There is thinning of the meniscus.
== END | disposition home or self-care (01) ==
LOC: RADMRIMAIN 20:13
PROVIDERS: ATTEND Orthopaedic Surgery
DX: M17.11 Unilateral primary osteoarthritis, right knee (principal); M71.21 Synovial cyst of popliteal space [Baker], right knee

== ENCOUNTER 2020-09-15 07:48 | Day surgery (SDC) | payer MEDICAID ==
[2020-09-14 11:12] VITALS: BMI 35.7
[~2020-09-15 07:48] MED LIST changes: -DEXAMETHASONE SOD PHOSPHATE 4 MG/ML 1 ML VIAL IV ONE; -MIDAZOLAM 2 MG/2 ML VIAL IV PRN
[2020-09-15 08:16] VITALS: TEMP 97.8
[2020-09-15] MEDS ORDERED: MIDAZOLAM 2 MG/2 ML VIAL ONE (08:16)
[2020-09-15] MEDS ORDERED: fentaNYL (PF) 50 MCG/ML 2 ML AMP ONE (08:16)
[2020-09-15] MEDS ORDERED: IOPAMIDOL M200 10 ML VIAL ONE (08:16)
[2020-09-15] MEDS ORDERED: DEXAMETHASONE SOD PHOSPHATE 10 MG/ML 1 ML VIAL ONE (08:16)
[2020-09-15] MEDS ORDERED: LACTATED RINGERS 1,000 ML IV ONE ×3 (08:17)
--- NOTE | 2020-09-15 08:29 | P.PCN ---
Date of Procedure: 09/15/20 Surgeon: Salbador Sutherland Pathology: none sent Condition: stable Disposition: PACU Description of Procedure: PREOPERATIVE DIAGNOSIS: Lumbar radiculopathy POSTOPERATIVE DIAGNOSIS: Lumbar radiculopathy PROCEDURE 1. Transforaminal epidural steroid injection under fluoroscopic guidance at the left L5-S1 level 2. Lumbar epidurogram. SURGEON: Salbador Sutherland MD ANESTHESIA: Local with 1% lidocaine; IV sedation with Versed and fentanyl. EBL: Minimal PROCEDURE INDICATION: The patient with low back pain and radiculopathy symptoms unresponsive to conservative treatment. PROCEDURE DESCRIPTION / TECHNIQUE: The patient was seen and identified in the preoperative area. Risks, benefits, complications, and alternatives were discussed with the patient. The patient agreed to proceed with the procedure and signed the consent. IV was started, and vital signs were stable. Patient was taken to the OR and time out was completed. The patient was placed in the prone position on procedure table and a pillow was placed under the abdomen to reduce lumbar lordosis. The lumbosacral area was prepped and draped in the usual sterile fashion. Critical pause was taken. Vital signs were closely monitored during the procedure. Conscious sedation was used during the procedure to decrease patients anxiety. The vertebral body of the lumbar vertebra L5 was squared off by tilting the C-arm cephalad then the C-arm was tilted to the oblique position and the target point was at the 6 o'clock position of the pedicle of L5 then skin and deeper tissues were localized with 1% lidocaine. Subsequently, a 22-gauge 5- inch spinal needle was advanced under a tunneled view fluoroscopic guidance just underneath the chin of the Jasper dog at the . Under lateral fluoroscopy, the needle was then advanced to the middle of the upper one third of the foramen between(L5-S1 ). After negative aspiration of CSF and blood and with no paresthesias, 1 mL of omnipaque contrast dye was injected excellent epidurogram and outlining of the L nerve root was identified. Subsequently, 2 mL of block solution containing 10 mg of Decadron and 1 mL of Lidocaine 1% PF was injected. Needle was removed intact . At the end of the procedure, skin was cleansed, and bandages were applied. COMPLICATIONS: None COMMENTS: DISPOSITION / PLANS: The patient was placed in a supine position and transferred to the recovery area in a stable condition for observation. There was no evidence of lower extremity motor or sensory deficit after the procedure. Patient was discharged from the recovery room after meeting discharge criteria. Home discharge instructions were given to the patient by the staff.
[2020-09-15] MEDS ORDERED: IV FLUID CONTINUATION 800 ML IV ONE (08:37)
[2020-09-15 08:46] VITALS: RESP 16
[2020-09-15 08:53] VITALS: BP 116/75; PULSE 81
--- NOTE | 2020-09-15 09:40 | FL ---
EXAMINATION TYPE: FL guided pain mgmt statistic DATE OF EXAM: 09/15/2020 FLUOROSCOPY Fluoroscopy time of 15 seconds was used during lumbar transforaminal epidural steroid injection. 3 i mage/s document/s the procedure.
== END 2020-09-15 09:07 | disposition home or self-care (01) ==
LOC: ORPAIN 07:48
PROVIDERS: ATTEND Anesthesiology
DX: M54.16 Radiculopathy, lumbar region (principal)
CPT/HCPCS: 64483; 64484; J2250; J1100; J2001; J3010; Q9966; 99152

== ENCOUNTER → 2020-10-12 | Outpatient (CLI) | payer MEDICAID ==
[2020-10-12 16:31] LABS: Basophils # (A) 0.1 k/uL (0-0.2); Basophils % (A) 1 %; Eosinophils # (A) 0.3 k/uL (0-0.7); Eosinophils % (A) 4 %; HCT 40.2 % (34.0-46.0); HGB 13.9 gm/dL (11.4-16.0); Lymphocytes # (A) 1.5 k/uL (1.0-4.8); Lymphocytes % (A) 22 %; MCH 30.1 pg (25.0-35.0); MCHC 34.5 g/dL (31.0-37.0); MCV 87.4 fL (80.0-100.0); Mean Platelet Volume 7.5; Monocytes # (A) 0.4 k/uL (0-1.0); Monocytes % (A) 6 %; Neutrophils # (A) 4.6 k/uL (1.3-7.7); Neutrophils % (A) 66 %; Platelet Count 395 k/uL (150-450); RBC 4.61 m/uL (3.80-5.40)
== END | disposition home or self-care (01) ==
LOC: LABWHC1 15:39
PROVIDERS: ATTEND Orthopaedic Surgery
DX: Z01.812 Encounter for preprocedural laboratory examination (principal); M23.91 Unspecified internal derangement of right knee
CPT/HCPCS: 80051; 85025

== ENCOUNTER → 2020-10-12 | Outpatient (CLI) | payer MEDICAID ==
[2020-10-13 04:27] LABS: Estradiol 91.7 pg/mL; Follicle Stimulating Hormone 37.5 mIU/mL
== END | disposition home or self-care (01) ==
LOC: LABWHC1 15:41
PROVIDERS: ATTEND Physician Assistant
DX: N95.1 Menopausal and female climacteric states (principal)
CPT/HCPCS: 36415; 82670; 83001; 84403

== ENCOUNTER 2020-10-29 06:29 | Day surgery (SDC) | payer MEDICAID ==
[2020-10-27 15:46] VITALS: BMI 35.7
--- NOTE | 2020-10-28 19:24 | HP ---
HISTORY AND PHYSICAL REASON FOR ADMISSION: Surgery 10/29/2020. HISTORY OF PRESENT ILLNESS: Marie Payne is a 60-year-old patient seen with progressive right knee pain. We discussed options for treatment. She elected to proceed with arthroscopy. Consent obtained. PAST MEDICAL HISTORY: Hypertension, gastroesophageal reflux disease. PAST SURGICAL HISTORY: Colonoscopy, hysterectomy, bladder suspension surgery, jaw surgery. MEDICATIONS: Hydrochlorothiazide, lisinopril, omeprazole. ALLERGIES: None. SOCIAL HISTORY: She denies tobacco use. PHYSICAL EVALUATION OF THE RIGHT KNEE: Range of motion 0-120. There is a mild effusion present. Tenderness medial joint line. Positive medial Bernarda's. Ligaments are stable. Hip rotation is without pain. Distal neurovascular exam is intact. RADIOGRAPHS: Right knee radiographs revealed osteoarthritic changes. Right knee MRI revealed medial meniscal tear as well as osteoarthritic changes. IMPRESSION: 1. Internal derangement of right knee with medial meniscal tear. 2. Right knee osteoarthritis. 3. Hypertension. 4. Gastroesophageal reflux disease. PLAN: Right knee arthroscopy with partial meniscectomy and debridement. Surgery 10/29/2020. MMODL / IJN: [id number] /
[~2020-10-29 06:29] MED LIST changes: +DEXAMETHASONE SOD PHOSPHATE 4 MG/ML 1 ML VIAL IV ONE; +ONDANSETRON 4 MG/2 ML VIAL IVP ONE
[2020-10-29] MEDS ORDERED: fentaNYL (PF) 50 MCG/ML 2 ML AMP ONE (07:24)
[2020-10-29] MEDS ORDERED: PROPOFOL 10 MG/ML 20 ML VIAL IV ONE (07:24)
[2020-10-29] MEDS ORDERED: MIDAZOLAM 2 MG/2 ML VIAL ONE (07:24)
[2020-10-29] MEDS ORDERED: LIDOCAINE 1% INJ 10MG/ML (20 ML MDV) ONE (07:24)
[2020-10-29] MEDS ORDERED: KETOROLAC 15 MG/ML 1 ML VIAL ONE (07:24)
[2020-10-29] MEDS ORDERED: BUPIVACAINE (PF) 0.25% 30 ML VIAL INTRAARTIC ONE (07:51)
[2020-10-29 08:14] VITALS: TEMP 97.4
[2020-10-29] MEDS: HYDROmorphone 0.5 MG/0.5 ML SYRINGE IVP PRN ×3 (08:17→08:38)
--- NOTE | 2020-10-29 08:17 | P.OP ---
Date of Procedure: 10/29/20 Preoperative Diagnosis: Internal derangement right knee Postoperative Diagnosis: 1. Tear lateral meniscus right knee 2. Grade 4 chondromalacia medial compartment right knee 3. Grade 2 chondromalacia patella right knee 4. Reactive synovitis medial, lateral and suprapatellar compartments right knee Procedure(s) Performed: 1. Arthroscopic partial lateral meniscectomy right knee 2. Arthroscopic chondroplasty patella right knee 3. Arthroscopic partial synovectomy medial, lateral and suprapatellar compartments right knee Anesthesia: MEAGHANA, local Surgeon: Daniele Kaufman Estimated Blood Loss (ml): 7 Pathology: none sent Condition: stable Disposition: PACU Indications for Procedure: 60-year-old patient seen with progressive right knee pain. After treatment options were discussed, she elected to proceed with arthroscopy. Operative Findings: See description of procedure Description of Procedure: Patient was taken to the operative suite. Patient underwent a general anesthetic by the department of anesthesia. Patient was given preoperative antibiotics. The right lower extremity was placed in a well-padded arthroscopic leg staley. The right leg was prepped and draped in the normal sterile orthopedic fashion. A lateral parapatellar and suprapatellar incision was made. Trochars were inserted. Arthroscopy was initiated. Suprapatellar pouch revealed diffuse thick reactive synovitis. The patellofemoral joint appeared to articulate congruently. There was grade 2 chondromalacia of the patella with diffuse osteochondral tears present. The scope was guided into the medial gutter. No loose bodies or plica were identified. The scope was then guided into the medial compartment. A medial parapatellar incision was made. Trocar inserted followed by probe. There was evidence for previous partial men iscectomy. The residual meniscus appeared stable with no significant new tear. There were areas of grade 4 chondromalacia weightbearing surface medial femoral condyle and tibial plateau with exposed bone([id number] arthritis). There was thick reactive synovitis anteriorly. I introduced a motorized shaver and performed a partial synovectomy. There was good decompression was synovitis. Scope and probe were then guided into the intercondylar notch. Cruciates were identified, probed and found to be stable. The scope and probe were then guided into lateral compartment. There was a tear involving the anterior horn lateral meniscus. There were grade 2 chondromalacia changes of the lateral compartment with no osteochondral tears present. There was thick reactive synovitis anteriorly. I performed a partial lateral meniscectomy getting down to stable meniscal tissue. I performed a partial synovectomy decompressing the thick reactive synovitis. Shaver was removed. I probed the residual meniscus and was found to be stable. There was good decompression of the synovitis. The scope was in guided back into the suprapatellar compartment. I introduced a motorized shaver into the suprapatellar compartment. I performed a chondroplasty of the patella getting down to stable osteochondral tissue. I performed a partial synovectomy decompressing the thick reactive synovitis. Shaver was removed. The residual osteochondral surface of the patella remained stable again noting grade 2 chondromalacia. There was good decompression of the synovitis. I now took one more look on the entire knee, no residual debris. Instruments were now removed from the joint. The joint was infiltrated with .25% Marcaine. Steri- Strips were applied to the portal sites. Sterile dressings were applied. The patient was placed into a TYRON hose. No tourniquet was utilized. The patient was awakened, transferred to a bed and taken to recovery stable satisfactory condition.
[2020-10-29 08:58] VITALS: RESP 16
[2020-10-29] MEDS ORDERED: HYDROcodone/APAP 5-325MG 1 EACH TAB ONE (09:03)
[2020-10-29] MEDS ORDERED: HYDROcodone/APAP 5-325MG 1 EACH TAB PO ONE (09:05)
[2020-10-29 09:34] VITALS: BP 117/70; PULSE 78
== END 2020-10-29 10:12 | disposition home or self-care (01) ==
LOC: OR 06:29
PROVIDERS: ATTEND Orthopaedic Surgery
DX: S83.281A Other tear of lateral meniscus, current injury, right knee, initial encounter (principal); M22.41 Chondromalacia patellae, right knee; I10 Essential (primary) hypertension; K21.9 Gastro-esophageal reflux disease without esophagitis; K44.9 Diaphragmatic hernia without obstruction or gangrene; Z79.899 Other long term (current) drug therapy; Z90.710 Acquired absence of both cervix and uterus
CPT/HCPCS: 29881; 29876; J2250; J1100; J0690; J2001; J3010; J1885; J2704; J1170

== ENCOUNTER → 2020-11-30 | Outpatient (CLI) | payer MEDICAID ==
--- NOTE | 2020-12-01 08:37 | CT ---
EXAMINATION TYPE: CT chest wo con DATE OF EXAM: 11/30/2020 COMPARISON: CT chest 11/27/2019 HISTORY: Thoracic aortic aneurysm w/o rupture. Reporting no issues since last scan. CT DLP: 478.40 mGycm. Automated Exposure Control for Dose Reduction was Utilized. TECHNIQUE: CT scan of the thorax is performed without IV contrast. FINDINGS: Lack of intravenous contrast could compromise sensitivity. LUNGS: The lungs are grossly clear, there is no concerning parenchymal mass or nodule identified. T here is no pleural effusion or pneumothorax seen. The tracheobronchial tree is patent. MEDIASTINUM: Lack of IV contrast is noted to limit evaluation for mediastinal and especially hilar ad enopathy. There are no definitive greater than 1 cm hilar or mediastinal lymph nodes. No cardiomega ly or pericardial effusion is seen. OTHER: Ascending aorta measures approximately 4.7 cm on this noncontrast exam, proximal descending ao rta measures 3.7 cm. At the level of the hiatus the aorta measures approximately 2.5 cm. Lobular appe arance of the right kidney is again noted. Bones are stable, there is thoracic spondylosis, superior endplate deformity at T5 is stable. IMPRESSION: Aortic measurements as described, noncontrast exam
== END | disposition home or self-care (01) ==
LOC: RADCTMAIN 18:35
PROVIDERS: ATTEND Internal Medicine
DX: I71.2 Thoracic aortic aneurysm, without rupture (principal)
CPT/HCPCS: 71250

== ENCOUNTER → 2020-12-29 | Outpatient (CLI) | payer MEDICAID, OTHER | END | disposition home or self-care (01) | LOC: LABWHC1 14:52 | PROVIDERS: ATTEND Emergency Medicine | DX: U07.1 COVID-19 (principal) | CPT/HCPCS: 87635 ==

== ENCOUNTER → 2021-01-01 | Outpatient (CLI) | payer MEDICAID, OTHER ==
[~2021-01-01] MED LIST changes: +BAMLANIVIMAB (EUA) 700 MG, ETESEVIMAB (EUA) 1,400 MG in SODIUM CHLORIDE 0.9% 50 ML IVPB ONE; -DEXAMETHASONE SOD PHOSPHATE 4 MG/ML 1 ML VIAL IV ONE; -LACTATED RINGERS 1,000 ML IV SCH; -ONDANSETRON 4 MG/2 ML VIAL IVP ONE; +SODIUM CHLORIDE 0.9% 50 ML IVPB ONE; +SODIUM CHLORIDE 0.9% 500 ML 500 ML in EMPTY BAG 1 BAG IV PRN
[2021-01-01 08:51] VITALS: RESP 16; TEMP 98.4
[2021-01-01 09:01] VITALS: BP 148/81; PULSE 78
== END ==
LOC: PROCWHC3 08:05
PROVIDERS: ATTEND Internal Medicine
DX: U07.1 COVID-19 (principal); E66.9 Obesity, unspecified; Z68.35 Body mass index [BMI] 35.0-35.9, adult; Z88.8 Allergy status to other drugs, medicaments and biological substances; Z87.891 Personal history of nicotine dependence
CPT/HCPCS: 96360; J3490; M0245

== ENCOUNTER → 2021-01-22 | Outpatient (CLI) | payer MEDICAID ==
--- NOTE | 2021-01-22 14:01 | MM ---
Reason for exam: additional evaluation requested from prior study. Last mammogram was performed 6 months ago. History: Patient is postmenopausal. Family history of premenopausal breast cancer in sister at age 42 and premenopausal breast cancer in aunt at age 48. Benign right US cyst aspiration of the right breast, February 16, 2005. Took hormonal contraceptives for 15 years. Taking estrogen beginning at age 56. Taking progesterone beginning at age 56. Taking other hormone for 2 years. Physical Findings: Nurse did not find any significant physical abnormalities on exam. MG 3D Diag Mammo W/Cad ANDREW Bilateral CC and MLO view(s) were taken. Prior study comparison: July 17, 2020, left breast MG 3d diag mammo w/cad LT. January 14, 2020, left breast MG 3d work up w/cad LT. January 08, 2020, bilateral MG 3d screening mammo w/cad. There are scattered fibroglandular densities. No significant new findings when compared with previous films. These results were verbally communicated with the patient and result sheet given to the patient on 01/22/21. ASSESSMENT: Benign, BI-RAD 2 RECOMMENDATION: Routine screening mammogram of both breasts in 1 year.
== END | disposition home or self-care (01) ==
LOC: RADMAMWWP 13:00
PROVIDERS: ATTEND Obstetrics & Gynecology
DX: R92.8 Other abnormal and inconclusive findings on diagnostic imaging of breast (principal); Z80.3 Family history of malignant neoplasm of breast; Z78.0 Asymptomatic menopausal state
CPT/HCPCS: 77062; 77066

== ENCOUNTER → 2021-01-26 | Outpatient (CLI) | payer MEDICAID ==
[2021-01-26 16:19] LABS: African American GFR (CKD) >90 (>60 ml/min/1.73 sqM); Blood Urea Nitrogen 16 mg/dL (7-17); Non-African American GFR(CKD) >90 (>60 ml/min/1.73 sqM)
--- NOTE | 2021-01-27 10:08 | CT ---
EXAMINATION TYPE: CT angio thor/abd pel aorta DATE OF EXAM: 01/26/2021 COMPARISON: Chest CT November 30, 2020. CT abdomen and pelvis June 10, 2015 HISTORY: f/u aneurysm CT DLP: 1487.2 mGycm. Automated Exposure Control for Dose Reduction was Utilized. CONTRAST: CTA scan of the thorax, abdomen and pelvis is performed without oral and without and with IV Contrast , patient injected with 100 mL of Isovue 370. Three-D reconstructed images created on an independent workstation and reviewed. FINDINGS: VASCULAR: Persistent markedly enlarged main pulmonary artery at 4.2 cm axial image 25. Adjacent ascen ding aorta measures up to 4.3 cm. No aneurysm extension into the arch or descending aorta. Normal 3 v essel origins from the arch. Patent celiac artery, SMA, GONZALO, and bilateral renal arteries. No signifi cant stenosis. Patent iliac and femoral vessels bilaterally without significant stenosis. No greater than 3.0 cm AAA LUNGS: Stable 5 mm left apical nodule image 71. Scattered mild linear scarring redemonstrated. There is no pleural effusion or pneumothorax seen. The tracheobronchial tree is patent. MEDIASTINUM: There are no greater than 1 cm hilar or mediastinal lymph nodes. No pericardial effusi on is seen. Stable mild cardiomegaly. LIVER/GB: Occasional subcentimeter lesions throughout the liver too small to further characterize pre sumed benign. Contracted gallbladder. Liver size is stable and upper limits of normal. PANCREAS: No significant abnormality is seen. SPLEEN: No significant abnormality is seen. ADRENALS: No significant abnormality is seen. KIDNEYS: Right-sided extrarenal pelvis redemonstrated. BOWEL: No significant abnormality is seen. GENITAL ORGANS: Uterus surgically absent or atrophic in appearance similar to prior. Scattered tiny b ilateral pelvic phleboliths. LYMPH NODES: No greater than 1cm abdominal or pelvic lymph nodes are appreciated. OSSEOUS STRUCTURES: No significant abnormality is seen. OTHER: No significant additional abnormality is seen. IMPRESSION: 1. Persistent ascending aortic aneurysm measuring up to 4.3 cm. No significant change from recent [facility] CT. No aneurysm extension or distal aneurysm noted. Significant enlarged main pulmonary artery co nsistent with underlying pulmonary artery hypertension. Mild cardiomegaly redemonstrated.
== END | disposition home or self-care (01) ==
LOC: RADCTMAIN 15:44
PROVIDERS: ATTEND Surgery
DX: I71.2 Thoracic aortic aneurysm, without rupture (principal); I51.7 Cardiomegaly; I28.8 Other diseases of pulmonary vessels
CPT/HCPCS: 82565; 84520; 71275; 36415; 74174; Q9967

== ENCOUNTER 2021-06-16 07:16 | Day surgery (SDC) | payer MEDICAID ==
[2021-06-14 17:01] VITALS: BMI 32.4
[~2021-06-16 07:16] MED LIST changes: -BAMLANIVIMAB (EUA) 700 MG, ETESEVIMAB (EUA) 1,400 MG in SODIUM CHLORIDE 0.9% 50 ML IVPB ONE; +LACTATED RINGERS 1,000 ML IV SCH; -SODIUM CHLORIDE 0.9% 50 ML IVPB ONE; -SODIUM CHLORIDE 0.9% 500 ML 500 ML in EMPTY BAG 1 BAG IV PRN
[2021-06-16 07:53] VITALS: TEMP 97.7
[2021-06-16] MEDS ORDERED: PROPOFOL 10 MG/ML 20 ML VIAL IV ONE (08:22)
[2021-06-16] MEDS ORDERED: LIDOCAINE 2% INJ 20 MG/ML (2 ML VIAL) ONE (08:22)
--- NOTE | 2021-06-16 08:45 | P.PCN ---
Date of Procedure: 06/16/21 Procedure(s) Performed: Brief history: Patient is a pleasant 61-year-old white female scheduled for an elective upper endoscopy as well as colonoscopy as a part of evaluation of GERD and screening for colon cancer. Procedure performed: Esophagogastroduodenoscopy with biopsy. Colonoscopy Preoperative diagnosis: GERD Screening for colon cancer Anesthesia: MAC Procedure: After informed consent was obtained from the patient was brought into the endoscopy unit and IV sedation was administered by anesthesia under continuous monitoring. Initially upper endoscopy was done. The Olympus GF 160 video endoscope was inserted inserted into the mouth and esophagus intubated without any difficulty and was gradually advanced into the stomach and duodenum and carefully examined. The bulb and second part of the duodenum appeared normal. The scope was then withdrawn into the stomach adequately insufflated with air and upon careful examination the antrum and body, cardia and fundus appeared normal. Multiple small gastric polyps noted which were biopsied. The scope was then withdrawn into the esophagus. Small sliding type hiatal hernia noted. The GE junction was located at 40 cm to the incisors. It appeared regular with no erythema erosions or ulcerations. Rest of the esophagus appeared normal. Patient tolerated the procedure well. At this time the patient continued to remain sedation. Initial digital rectal examination was normal. Olympus CF 160 video colonoscope was then inserted into the rectum and gradually advanced to the cecum without any difficulty. Careful examination was performed as the scope was gradually being withdrawn. The prep was fair. There was significant amount of retained liquid stool noted in several areas of the colon there was thoroughly irrigated and aspirated. The cecum, ascending colon, transverse colon, descending colon, sigmoid colon and rectum appeared normal. Retroflexion was performed in the rectum and no lesions were noted. Patient tolerated the procedure well. Impression: 1. Upper endoscopy revealed gastric polyps and a small sliding type hiatal hernia. 2. Colonoscopy was within normal limits with no evidence of colorectal neoplasia Recommendations: Findings of this examination were discussed with the patient as well as her family. She was advised to continue with omeprazole 20 mg daily and follow antireflux measures. She was advised to have a repeat screening colonoscopy in 10 years.
[2021-06-16 09:22] VITALS: BP 127/80; PULSE 80; RESP 20
== END 2021-06-16 09:30 | disposition home or self-care (01) ==
LOC: ORWHC2ENDO 07:16
PROVIDERS: ATTEND Internal Medicine Gastroenterology
DX: K21.9 Gastro-esophageal reflux disease without esophagitis (principal); K31.7 Polyp of stomach and duodenum; K44.9 Diaphragmatic hernia without obstruction or gangrene; Z12.11 Encounter for screening for malignant neoplasm of colon; I10 Essential (primary) hypertension; I34.1 Nonrheumatic mitral (valve) prolapse; M19.90 Unspecified osteoarthritis, unspecified site; Z79.890 Hormone replacement therapy; Z79.899 Other long term (current) drug therapy; Z88.8 Allergy status to other drugs, medicaments and biological substances
CPT/HCPCS: 88305; 43239; J2704; J2001; G0121

== ENCOUNTER → 2021-08-30 | Outpatient (CLI) | payer MEDICAID ==
[2021-08-30 18:57] LABS: Estradiol 61.5 pg/mL; Follicle Stimulating Hormone 32.5 mIU/mL
== END | disposition home or self-care (01) ==
LOC: LABWHC1 12:30
PROVIDERS: ATTEND Obstetrics & Gynecology
DX: E34.50 Androgen insensitivity syndrome, unspecified (principal); N95.1 Menopausal and female climacteric states; R53.83 Other fatigue
CPT/HCPCS: 36415; 82670; 83001; 84144; 84403

== ENCOUNTER → 2021-10-22 | Outpatient (CLI) | payer MEDICAID ==
--- NOTE | 2021-10-22 12:48 | MR ---
EXAMINATION TYPE: MR cervical spine wo con DATE OF EXAM: 10/22/2021 12:07 PM COMPARISON: NONE HISTORY: nondisplaced type II dens fx. left neck and upper shoulder pain Multiplanar MultiSpin echo imaging of the cervical spine was performed. Comparison: none C2-C3: No evidence for degenerative disc disease. No disc bulge/herniation or protrusion. No Canal stenosis. Foramina are patent bilaterally. C3-C4: No evidence for degenerative disc disease. No disc bulge/herniation or protrusion. No Canal stenosis. Foramina are patent bilaterally. C4-C5: Mild decreased signal and loss of height with posterior disc bulge at C4-5. Small annular tear is seen. No evidence for solange disc herniation or protrusion. No central stenosis. Foramina are juarez nt. C5-C6: Mild decreased signal and loss of height with right paracentral posterior disc bulge at C4-5. Small annular tear is seen. No evidence for solange disc herniation or protrusion. No central stenosis. Foramina are patent. C6-C7: Mild degenerative disc disease. Mild posterior disc bulge. No evidence for disc herniation or protrusion. No central stenosis or foraminal encroachment. C7-T1: No evidence for degenerative disc disease. No disc bulge/herniation or protrusion. No Canal stenosis. Foramina are patent bilaterally. Cervical segments are intact. There is normal alignment. Cervical spinal cord is of normal signal. Craniovertebral junction relationships are within normal limits. IMPRESSION: 1. Degenerative disc disease as discussed. 2. Disc bulging with annular tears at C4-5 and C5-6. No evidence for central stenosis or solange hernia tion.
--- NOTE | 2021-10-22 16:10 | CT ---
EXAMINATION TYPE: CT cervical spine wo con DATE OF EXAM: 10/22/2021 COMPARISON: None HISTORY: 61 year-old female M54.12, chronic neck pain TECHNIQUE: Contiguous axial scanning of the cervical spine without IV contrast. Coronal and sagittal reconstructions performed. CT DLP: 348.7 mGycm Automated exposure control for dose reduction was used. FINDINGS: High riding left jugular bulb incidentally noted. Marked hypertrophy of the palatine and lingual tonsils. Consider ENT evaluation to exclude underlying mass. No craniocervical junction abnormality, predental space widening, or prevertebral soft tissue swellin g. Reversal of the normal cervical lordosis but with preserved alignment. Mild degenerative disc disease C5-C6 with uncovertebral joint arthropathy as well. Scattered mild fac et degenerative change, more advanced towards the right at C2-C3 and some degenerative bony ankylosis at this level on both sides. No evident canal compromise by CT. At C5-C6, changes result in moderate right foraminal stenosis. No acute fracture of the cervical spine. IMPRESSION: 1. INCIDENTAL: MARKED HYPERTROPHY OF THE PALATINE AND LINGUAL TONSILS. CONSIDER ENT EVALUATION TO EXC LUDE UNDERLYING MASS. 2. MILD TO MODERATE SPONDYLOTIC CHANGE PARTICULARLY AT C5-C6 RESULTS IN A MODERATE RIGHT NEUROFORAMIN AL STENOSIS. NO OBVIOUS SPINAL CANAL COMPROMISE BY CT. 3. DEGENERATIVE BONY ANKYLOSIS INVOLVING THE BILATERAL FACET JOINTS AT C2-C3.
== END | disposition home or self-care (01) ==
LOC: RADCTMAIN 11:07
PROVIDERS: ATTEND Neurological Surgery
DX: M50.123 Cervical disc disorder at C6-C7 level with radiculopathy (principal); M43.22 Fusion of spine, cervical region; J35.1 Hypertrophy of tonsils
CPT/HCPCS: 72125; 72141

== ENCOUNTER → 2022-01-17 | Outpatient (CLI) | payer MEDICAID ==
[2022-01-17 10:45] LABS: African American GFR (CKD) >90 (>60 ml/min/1.73 sqM); Blood Urea Nitrogen 14 mg/dL (7-17); Non-African American GFR(CKD) >90 (>60 ml/min/1.73 sqM)
--- NOTE | 2022-01-17 11:45 | CT ---
EXAMINATION TYPE: CT angio chest CT DLP: 919 mGycm, Automated exposure control for dose reduction was used. DATE OF EXAM: 01/17/2022 11:32 AM COMPARISON: Multiple CTs of the chest with most recent on 11/30/2020. CLINICAL INDICATION:Female, 61 years old with history of I71.4 AAA; Thoracic aortic aneurysm. TECHNIQUE/CONTRAST: CTA scan of the thorax is performed without and with IV Contrast, patient injected with 100ml mL of I sovue 370, pulmonary embolism protocol. MIP images are created and reviewed. FINDINGS: Lungs/Pleura: No evidence of focal consolidation, pleural effusion or pneumothorax. Airway: Large airways are patent. Heart: Heart is within normal limits for size.. Vasculature: Ascending thoracic aorta dilation up to 4.5 cm which is similar to prior on 11/30/2020. There is dilation of the pulmonary trunk measuring up to 4.2 cm, not significantly changed from prior . The origins of the aortic arch are patent. Thoracic cord is within normal limits for size. There is less portions of the central pulmonary arter ial vasculature imaging evidence of filling defect.1 Mediastinum: No gross evidence of adenopathy. Small hiatal hernia is present. Musculoskeletal: No acute osseous abnormalities, mild multilevel disc degeneration changes are presen t throughout the spine. Soft Tissues: Unremarkable. Lower neck: No significant findings. Upper Abdomen: No significant findings. IMPRESSION: 1. Similar ascending thoracic aorta ectasia measuring up to 4.5 cm. 2. Findings suspicious for pulmonary hypertension.
== END | disposition home or self-care (01) ==
LOC: RADCTMAIN 10:02
PROVIDERS: ATTEND Surgery
DX: I77.810 Thoracic aortic ectasia (principal)
CPT/HCPCS: 82565; 84520; 71275; 36415; Q9967

== ENCOUNTER → 2022-01-24 | Outpatient (CLI) | payer MEDICAID ==
--- NOTE | 2022-01-25 13:38 | MM ---
Reason for Exam: Screening (asymptomatic). Last screening mammogram was performed 12 month(s) ago. Patient History: Menarche at age 11. First Full-Term at age 27. Hysterectomy at age 37. Postmenopausal. Currently using Estrogen, starting at age 56. Currently using Progesterone, starting at age 56. Patient used Hormonal Contraceptives for 15 years. 02/16/2005, Benign Cyst Aspiration on the right side. Maternal aunt had breast cancer, age 48. Sister had breast cancer, age 42. Risk Values: Ileana 5 year model risk: 3.0%. NCI Lifetime model risk: 13.2%. Prior Study Comparison: 01/14/2020 Left Diagnostic Mammogram, [facility]. 07/17/2020 Left Diagnostic Mammogram, [facility]. 01/22/2021 Bilateral Diagnostic Mammogram, [facility]. Tissue Density: There are scattered fibroglandular densities. Findings: Analyzed By CAD. There are a few scattered benign-appearing round and linear calcifications bilaterally redemonstrated. Stable well-circumscribed 6 mm mass in the anterior left breast from older mammograms CC slice 35. Benign-appearing bilateral axillary lymph nodes redemonstrated. There is no suspicious new group of microcalcifications or new suspicious mass in either breast. Overall Assessment: Benign, BI-RAD 2 Management: Screening Mammogram of both breasts in 1 year. A clinical breast exam by your physician is recommended on an annual basis and results should be correlated with mammographic findings. Electronically signed and approved by: Jignesh Johnston M.D.
== END | disposition home or self-care (01) ==
LOC: RADMAMWWP 13:36
PROVIDERS: ATTEND Obstetrics & Gynecology
DX: Z12.31 Encounter for screening mammogram for malignant neoplasm of breast (principal); Z78.0 Asymptomatic menopausal state; Z80.3 Family history of malignant neoplasm of breast
CPT/HCPCS: 77063; 77067

== ENCOUNTER → 2022-02-23 | Outpatient (CLI) | payer MEDICAID ==
--- NOTE | 2022-02-23 17:32 | FL ---
Fluoroscopy INDICATION: Pain FINDINGS: Fluoroscopy time: 5 seconds. Images obtained: 0. The procedure was explained to the patient, risks, complications and benefits. All questions were ans wered. Informed consent was obtained. Timeout was performed And the skin was cleansed with Betadine. The skin and deeper tissue was anesthetized with 1% lidocain e. Under fluoroscopic observation a 22-gauge spinal needle was advanced into the joint space without difficulty. Contrast was placed at the joint space without resistance. 8 mL volume was placed. The st ylette was replaced and the needle withdrawn. Discharge instructions were discussed with the patient. Patient was transferred to MRI for additional evaluation of the shoulder. Patient tolerated the procedure very well. IMPRESSIONS: 1. Successful left shoulder arthrogram.
--- NOTE | 2022-02-28 08:04 | MR ---
EXAMINATION TYPE: MRI arthrogram left shoulder DATE OF EXAM: 02/23/2022 COMPARISON: NONE HISTORY: 61-year-old female M25.512, left shoulder pain, Left shoulder arthrogram. Neck and left shou lder pain, tension. Technique: Multiplanar, multisequence images of the left shoulder were obtained after intra-articular administration of a gadolinium mixture. Please refer to arthrogram injection report of the same day for further details. FINDINGS: There is linear signal involving the intracapsular portion of the long head biceps tendon extending f rom the biceps anchor. The extracapsular portion remains appropriately situated along the bicipital g roove. There is prominent fluid along extracapsular portion compatible with communication with the sh oulder joint. Heterogeneous signal of the subscapularis tendon with articular sided tear of the inferior half fiber s measuring 10 x 9 mm. The superior half fibers remain intact. There is severe degenerative change of the AC joint with loss of joint space, subchondral marrow carol a, capsular hypertrophy, and periventricular edema. Mass effect onto the underlying myotendinous junc tion of the supraspinatus tendon. There is trace thickening of the subacromial/subdeltoid bursa and trace bursal fluid but no contrast accumulation within the bursal space. Some fraying is present along the supraspinatus and infraspinat us tendons. Diffuse heterogeneity of the supraspinatus tendon with a shallow articular sided tear at the junction of the supraspinatus and infraspinatus tendons measuring 10 x 10 mm, coronal image 15 an d sagittal image 7. No high-grade partial or full-thickness tear is identified. No atrophy of the rotator cuff musculature. While the intracapsular long head biceps tendon tear extends to the biceps anchor, there is otherwise , no discrete labral tear identified or para labral cyst. There is some degenerative blunting of the posterior labrum noted. Glenohumeral joint shows mild diffuse cartilage thinning but no focal high-grade chondral injury. No Hill-Sachs deformity or os acromiale. No suspicious bone marrow replacement. Heterogeneous red mar row can be seen in setting of anemia, obesity, smoking, chronic disease. IMPRESSION: 1. 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 2. Subscapularis and supraspinatus tendinosis. There is a partial-thickness articular sided tear of t he inferior half of the subscapularis tendon fibers. Additional shallow articular sided tear at the j unction of the supraspinatus/infraspinatus tendons measuring 10 x 10 mm. No high-grade partial or ful l-thickness rotator cuff tear. No muscle atrophy. 3. There is a partial thickness split of the intracapsular portion of the long head biceps tendon rodrigo t extends to the biceps anchor. However, otherwise, no discrete labral tear is identified.
== END | disposition home or self-care (01) ==
LOC: RADFLMAIN 13:04
PROVIDERS: ATTEND Physical Medicine & Rehabilitation
DX: M25.512 Pain in left shoulder (principal)
CPT/HCPCS: 23350; 73040; 73222; Q9967; A9585

== ENCOUNTER → 2022-12-01 | Outpatient (CLI) | payer MEDICAID ==
[2022-12-02 03:38] LABS: Anion Gap 8.4 mmol/L (4.00-12.00); Carbon Dioxide 26.6 mmol/L (21.6-31.8); Potassium 4.6 mmol/L (3.5-5.5)
[2022-12-02 04:21] LABS: Basophils # (A) 0.06 X 10*3/uL (0.00-0.10); Basophils % (A) 1.1 %; Eosinophils # (A) 0.22 X 10*3/uL (0.04-0.35); HCT 38.2 % (37.2-46.3); HGB 12.8 d/dL (12.0-15.0); Lymphocytes # (A) 1.77 X 10*3/uL (0.90-5.00); Lymphocytes % (A) 32.3 %; MCH 29.7 pg (27.0-32.0); MCHC 33.5 d/dL (32.0-37.0); MCV 88.6 FL (80.0-97.0); Mean Platelet Volume 9.8 FL (9.5-12.2); Monocytes # (A) 0.45 X 10*3/uL (0.20-1.00); Monocytes % (A) 8.2 %; NRBC Per 100 WBC 0 X 10*3/uL (0.00-0.01); Neutrophils # (A) 2.97 X 10*3/uL (1.80-7.70); Neutrophils % (A) 54.2 %; Platelet Count 280 X 10*3/uL (140-440); RBC 4.31 X 10*6/uL (4.10-5.20); RDW 12.9 % (11.5-14.5); WBC 5.48 X 10*3/uL (4.50-10.00)
== END | disposition home or self-care (01) ==
LOC: LABPAT 16:04
PROVIDERS: ATTEND Orthopaedic Surgery
DX: Z01.812 Encounter for preprocedural laboratory examination (principal); M75.42 Impingement syndrome of left shoulder
CPT/HCPCS: 80051; 85025

== ENCOUNTER 2022-12-15 14:06 | Day surgery (SDC) | payer MEDICAID ==
--- NOTE | 2022-12-14 14:23 | HP ---
HISTORY AND PHYSICAL DATE OF SCHEDULED SURGERY: 12/15/2022. HISTORY OF PRESENT ILLNESS: Marie Payne is a 62-year-old patient seen with progressive left shoulder pain. We discussed options for treatment. She elected to proceed with left shoulder arthroscopy. Consent obtained. PAST MEDICAL HISTORY: Hypertension, gastroesophageal reflux disease. PAST SURGICAL HISTORY: Colonoscopy, hysterectomy, bladder suspension surgery, jaw surgery. DAILY MEDICATIONS: 1. Hydrochlorothiazide. 2. Lisinopril. 3. Omeprazole. 4. Progesterone. 5. Zyrtec. 6. Motrin. ALLERGIES: None. SOCIAL HISTORY: She denies tobacco use. PHYSICAL EVALUATION OF LEFT SHOULDER: Flexion is 130 degrees, abduction is 90 degrees, external rotation is 40 degrees with weakness, tenderness along the anterior lateral acromion rotator cuff insertion site. Impingement positive at 80 degrees. Drop-arm sign is positive. Cross-body adduction sign is positive. Distal neurovascular exam is intact. RADIOGRAPHS: Radiographs of left shoulder revealed a type 2 acromion along with severe acromioclavicular joint osteoarthritis. MRI left shoulder revealed impingement, severe acromioclavicular joint osteoarthritis, partial rotator cuff tear, partial long head biceps tendon tear. IMPRESSION: 1. Left shoulder impingement with partial rotator cuff tear. 2. Left shoulder acromioclavicular joint osteoarthritis. 3. Left shoulder partial long head biceps tendon tear. 4. Hypertension. 5. Gastroesophageal reflux disease. PLAN: Left shoulder arthroscopy with subacromial decompression, possible rotator cuff repair, Lucio procedure, and biceps tenotomy. MMODL / IJN: [id number] /
[~2022-12-15 14:06] MED LIST changes: +DEXAMETHASONE SOD PHOSPHATE 4 MG/ML 1 ML VIAL IV ONE; +HYDROmorphone 0.5 MG/0.5 ML SYRINGE IVP PRN; -LACTATED RINGERS 1,000 ML IV SCH; +LIDOCAINE 1% (10MG/ML) FOR IV START INTRADERMA PRN; +MIDAZOLAM 2 MG/2 ML VIAL IV PRN; +ONDANSETRON 4 MG/2 ML VIAL ONE
[2022-12-15] MEDS: LACTATED RINGERS 1,000 ML IV SCH ×2 (14:19→15:54)
[2022-12-15 14:36] VITALS: RESP 16; TEMP 97.8
[2022-12-15 14:39] LABS: Glucose,Whole Blood 94 mg/dL (70-110)
[2022-12-15] MEDS ORDERED: NEOSTIGMINE 1 MG/ML 10 ML VIAL ONE (15:54)
[2022-12-15] MEDS ORDERED: ROCURONIUM 10 MG/ML (5 ML VIAL) IV ONE (15:54)
[2022-12-15] MEDS ORDERED: GLYCOPYRROLATE 0.2 MG/ML 2 ML VIAL ONE (15:54)
[2022-12-15] MEDS ORDERED: LIDOCAINE 1% INJ 10MG/ML (20 ML MDV) ONE (15:54)
[2022-12-15] MEDS ORDERED: PHENYLEPHRINE-0.9% NACL SYG 1,000 MCG/10 ML SYRINGE ONE (15:54)
[2022-12-15] MEDS ORDERED: fentaNYL (PF) 50 MCG/ML 2 ML AMP ONE (15:54)
[2022-12-15] MEDS ORDERED: PROPOFOL 10 MG/ML 20 ML VIAL IV ONE (15:54)
[2022-12-15] MEDS ORDERED: DEXAMETHASONE SOD PHOSPHATE 4 MG/ML 1 ML VIAL ONE (15:54)
[2022-12-15] MEDS ORDERED: ROPIVACAINE 5 MG/ML 30 ML VIAL ONE (15:54)
[2022-12-15] MEDS ORDERED: SUCCINYLCHOLINE CHLORIDE 200 MG/10 ML VIAL IV ONE (15:54)
[2022-12-15] MEDS ORDERED: LACTATED RINGERS 1,000 ML IV ONE (17:18)
--- NOTE | 2022-12-15 17:47 | P.OP ---
Date of Procedure: 12/15/22 Preoperative Diagnosis: Left shoulder impingement Postoperative Diagnosis: 1. Left shoulder rotator cuff tear 2. Left shoulder impingement 3. Left shoulder bicipital tendinitis 4. Left shoulder acromioclavicular joint osteoarthritis Procedure(s) Performed: 1. Left shoulder arthroscopic rotator cuff repair 2. Left shoulder arthroscopic subacromial decompression 3. Left shoulder arthroscopic biceps tenodesis 4. Left shoulder arthroscopic Lucio procedure Implants: 1Arthrex 4.75 swivel lock anchor Anesthesia: GETA, regional (Interscalene block) Surgeon: Daniele Kaufman Sheep Farmer #1: Barry Rain Estimated Blood Loss (ml): 11 Pathology: none sent Condition: stable Disposition: PACU Indications for Procedure: 62-year-old patient seen with progressive left shoulder pain. After having treatment options discussed, she elected to proceed with arthroscopy. Operative Findings: See description of procedure Description of Procedure: Patient underwent an interscalene block by department of anesthesia. The patient was then taken to the operative suite. The patient underwent a general anesthetic by the department of anesthesia. The patient was placed into a lateral position and secured. There was appropriate padding of the bony prominence. Left shoulder was then prepped and draped in normal sterile orthopedic fashion. We placed the extremity in 10 pounds of longitudinal traction. A posterior incision was now made for a posterior working portal site. The trocar and cannula were inserted into the glenohumeral joint. Arthroscopy was initiated. Spinal needle was now inserted anteriorly, to ascertain the anterior working portal site. An incision was now made in that area, a trocar was inserted followed by a probe. There was hyperemia and some partial tearing of the long head biceps tendon consistent with tendinitis. The labrum was probed and was stable. There was mild grade 1 chondromalacia without any evidence for osteochondral tears. I decided to proceed with a arthroscopic biceps tenodesis. I introduced a cannula through the anterior portal site. With the assistance of Juan gonzales placed a Lupine tax stitch through the proximal biceps tendon. I now released the biceps tendon off the superior labrum glenoid area. I now with this is of Juan WEBB punched hole at the interval area for insertion of an anchor. I now passed the suture through the eyelet of an Arthrex 4.75 swivel lock anchor. I placed the eyelet into our pre- punch hole and held in position while Juan WEBB tensioned the suture and deployed anchors with good fixation noted. The residual suture was clipped. We had excellent stable appearing inlay biceps tenodesis. Instruments were now removed from glenohumeral joint. Utilizing the posterior working portal site, the trocar and cannula were inserted into the subacromial space. Arthroscopy initiated. I made an incision 2 fingerbreadths lateral to the acromion. I introduced my trocar followed by my ArthroCare ablator. I now began ablating thick subacromial bursal tissue, which exposed the undersurface of the anterior acromion. There was diminished subacromial space. There was a very prominent anterior acromion. A motorized bur was introduced and a subacromial decompression was performed. I also excised some osteophytes off the inferior aspect of the distal clavicle. The AC joint was visualized and noted to be fairly arthritic. The motorized bur was introduced in the anterior portal site and a Lucio procedure was performed without difficulty, decompressing the AC joint nicely. I turned my attention to the rotator cuff. There was an intrasubstance tendon tear along the proximal supraspinatus tendon. The distal supraspinatus tendon had some partial tearing. I debrided that utilizing motorize shaver. I now probed the residual tendon tissue and it was stable with no evidence for perforation. I now with the assistance of Juan WEBB we pasted 2 converging sutures to repair that intrasubstance tear. I now repaired that tear without difficulty. The repair was probed and was found to be stable. I again thoroughly probed the remaining tendon and it was stable. Instruments now removed from the portal sites. All portal sites were approximated with nylon suture. Sterile dressings were applied followed by a shoulder sling. Barry WEBB assisted in this complex case. The patient was awakened, transferred to a bed, and taken to recovery in stable condition.
--- NOTE | 2022-12-15 18:26 | P.ANPRN ---
Procedure Note - Anesthesia - Nerve Block Performed Left Interscalene Single Time Out Performed: Yes Date of Procedure: 12/15/22 Procedure Start Time: 15:01 Procedure Stop Time: 15:04 Location of Patient: PreOp Indication: Acute Post-Operative Pain, Requested by Surgeon Sedation Type: Sedate with meaningful contact maintained Preparation: Sterile Prep Position: Supine Needle Types: Pajunk Needle Gauge: 21 Ultrasound used to visualize needle placement: Yes Ultrasound used to observe medication spread: Yes Blood Aspirated: No Pain Paresthesia on Injection Noted: No Resistance on Injection: Normal Image Stored and Saved: Yes Events: Uneventful and Well Tolerated (ropi .5% 20cc plus dexamethasone 4mg)
[2022-12-15 18:48] VITALS: BP 132/72; PULSE 80
== END 2022-12-15 19:10 | disposition home or self-care (01) ==
LOC: OR 14:06
PROVIDERS: ATTEND Orthopaedic Surgery
DX: M75.42 Impingement syndrome of left shoulder (principal); M75.102 Unspecified rotator cuff tear or rupture of left shoulder, not specified as traumatic; M75.22 Bicipital tendinitis, left shoulder; M19.012 Primary osteoarthritis, left shoulder; G89.18 Other acute postprocedural pain; I10 Essential (primary) hypertension; K21.9 Gastro-esophageal reflux disease without esophagitis; Z90.710 Acquired absence of both cervix and uterus; Z79.899 Other long term (current) drug therapy
CPT/HCPCS: 64415; 29826; 29827; 29828; 29824; C1713 ×2; J2250; J0330; J1100; J2710; J0690; J2001; J3010; J2795; J2704; J2371

== ENCOUNTER → 2023-01-26 | Outpatient (CLI) | payer MEDICAID ==
--- NOTE | 2023-01-26 16:24 | CT ---
CT CHEST FOR PULMONARY EMBOLISM. EXAMINATION TYPE: CT angio chest DATE OF EXAM: 01/26/2023 INDICATION: f/u thoracic aneurysm CT DLP: 729.0 mGycm, Automated exposure control for dose reduction was used. CONTRAST: Patient injected with 100ml mL of Isovue 370. COMPARISON: 01/17/2022 TECHNIQUE: CT of the chest is performed on a spiral scan at 2 mm thick sections. Study is performed with intravenous contrast timed for evaluation of the thoracic aorta. This will limit additional por tions of the evaluation. 3-D MIP images reconstructed by the technologist are reviewed on the [facility] er in the coronal and sagittal planes. FINDINGS: Thoracic aorta at the aortic root is 3.5 cm. The descending thoracic aorta at the level of the main p ulmonary artery is 4.1 cm. Main pulmonary artery the bifurcation is 4.2 cm. Aortic arch transverse di mension this midportion is 3.2 cm. The descending thoracic aorta tapers to its visualized course and measures 2.8 cm at the diaphragm. No aortic dissection is evident. No mediastinal or hilar adenopathy enlarged by CT criteria is evident. Lung windows are clear. Limited CT section through the upper abdomen are unremarkable. IMPRESSION: 1. Ascending thoracic aortic aneurysm measuring 4.1 centimeters, no enlargement comparison is evident . 2. Stable main pulmonary artery.
== END | disposition home or self-care (01) ==
LOC: RADCTMAIN 14:16
PROVIDERS: ATTEND Internal Medicine
DX: I71.60 Thoracoabdominal aortic aneurysm, without rupture, unspecified (principal); I71.21 Aneurysm of the ascending aorta, without rupture
CPT/HCPCS: 71275; Q9967

== ENCOUNTER → 2023-01-26 | Outpatient (CLI) | payer MEDICAID ==
[2023-01-27 02:14] LABS: Basophils # (A) 0.05 X 10*3/uL (0.00-0.10); Basophils % (A) 0.5 %; Eosinophils # (A) 0.06 X 10*3/uL (0.04-0.35); Eosinophils % (A) 0.6 %; HCT 34.5 % (37.2-46.3); HGB 11.9 g/dL (12.0-15.0); Lymphocytes # (A) 2.82 X 10*3/uL (0.90-5.00); Lymphocytes % (A) 28.6 %; MCH 29.7 pg (27.0-32.0); MCHC 34.5 g/dL (32.0-37.0); Mean Platelet Volume 9.8 FL (9.5-12.2); Monocytes # (A) 0.73 X 10*3/uL (0.20-1.00); Monocytes % (A) 7.4 %; NRBC Per 100 WBC 0 X 10*3/uL (0.00-0.01); Neutrophils # (A) 6.19 X 10*3/uL (1.80-7.70); Neutrophils % (A) 62.7 %; Platelet Count 297 X 10*3/uL (140-440); RBC 4.01 X 10*6/uL (4.10-5.20); WBC 9.87 X 10*3/uL (4.50-10.00)
[2023-01-27 04:00] LABS: Chol/HDL Ratio 3.05 Ratio; LDL Cholesterol,Calculated 81.3 mg/dL (0.0-131.0)
[2023-01-27 04:11] LABS: ALT 18 U/L (8-44); AST 49 U/L (13-35); Albumin 4.2 g/dL (3.8-4.9); Albumin/Globulin Ratio 1.75 Ratio (1.60-3.17); Alkaline Phosphatase 56 U/L (41-126); BUN/Creat Ratio 18.71 Ratio (12.00-20.00); Blood Urea Nitrogen 13.1 mg/dL (9.0-27.0); Calcium 9.4 mg/dL (8.7-10.3); Carbon Dioxide 21.7 mmol/L (21.6-31.8); Chloride 96 mmol/L (96-109); Globulin 2.4 g/dL (1.6-3.3); Glucose 73 mg/dL (70-110); Potassium 4.3 mmol/L (3.5-5.5); Sodium 132 mmol/L (135-145); Total Bilirubin 0.3 mg/dL (0.3-1.2); Total Protein 6.6 g/dL (6.2-8.2)
== END | disposition home or self-care (01) ==
LOC: LABWHC1 14:54
PROVIDERS: ATTEND Internal Medicine
DX: Z00.01 Encounter for general adult medical examination with abnormal findings (principal); Z13.220 Encounter for screening for lipoid disorders; I10 Essential (primary) hypertension; E55.9 Vitamin D deficiency, unspecified; R73.9 Hyperglycemia, unspecified
CPT/HCPCS: 36415; 80053; 80061; 82306; 83036; 85025

== ENCOUNTER → 2023-02-08 | Outpatient (CLI) | payer MEDICAID ==
--- NOTE | 2023-02-10 14:13 | MM ---
Reason for Exam: Screening (asymptomatic). Last screening mammogram was performed 12 month(s) ago. Patient History: Menarche at age 11. First Full-Term at age 27. Hysterectomy at age 37. Postmenopausal. Currently using Estrogen, starting at age 56. Currently using Progesterone, starting at age 56. Patient used Hormonal Contraceptives for 15 years. 02/16/2005, Benign Cyst Aspiration on the right side. Maternal aunt had breast cancer, age 48. Sister had breast cancer, age 42. Risk Values: Ileana 5 year model risk: 3.1%. NCI Lifetime model risk: 12.8%. Prior Study Comparison: 07/17/2020 Left Diagnostic Mammogram, [facility]. 01/22/2021 Bilateral Diagnostic Mammogram, [facility]. 01/24/2022 Bilateral MG 3D screening mammo w/cad, [facility]. Tissue Density: There are scattered fibroglandular densities. Findings: Analyzed By CAD. Left breast biopsy clip. There is no suspicious group of microcalcifications or new suspicious mass. Benign-appearing calcifications bilaterally. Overall Assessment: Benign, BI-RAD 2 Management: Screening Mammogram of both breasts in [address] [facility] will attempt to contact patient to return for supplemental views and ultrasound if indicated. Patient should continue monthly self-breast exams. A clinical breast exam by your physician is recommended on an annual basis. This exam should not preclude additional follow-up of suspicious palpable abnormalities. Note on Ileana scores and lifetime risk: 1. A Ileana score greater than 3% is considered moderate risk. If this is the case, consider specialist referral to assess eligibility for a risk reducing agent. 2. If overall lifetime risk for the development of breast cancer is 20% or higher, the patient may qualify for future screening with alternating mammogram and breast MRI. Electronically signed and approved by: Charlie Melendez DO
== END | disposition home or self-care (01) ==
LOC: RADMAMWWP 13:40
PROVIDERS: ATTEND Internal Medicine
DX: Z12.31 Encounter for screening mammogram for malignant neoplasm of breast (principal); Z80.3 Family history of malignant neoplasm of breast; Z78.0 Asymptomatic menopausal state
CPT/HCPCS: 77063; 77067

== ENCOUNTER → 2023-03-09 | Outpatient (CLI) | payer MEDICAID ==
[2023-03-10 03:01] LABS: HCT 39.1 % (37.2-46.3); HGB 13.4 g/dL (12.0-15.0); MCH 29.7 pg (27.0-32.0); MCHC 34.3 g/dL (32.0-37.0); MCV 86.7 FL (80.0-97.0); Mean Platelet Volume 9.6 FL (9.5-12.2); NRBC Per 100 WBC 0 X 10*3/uL (0.00-0.01); Platelet Count 321 X 10*3/uL (140-440); RBC 4.51 X 10*6/uL (4.10-5.20); WBC 9.53 X 10*3/uL (4.50-10.00)
[2023-03-10 03:03] LABS: Estradiol 38.4 pg/mL; Ferritin 92.7 ng/mL (10.0-291.0); Testosterone 99.9 ng/dL (7.00-45.62)
[2023-03-10 03:04] LABS: Follicle Stimulating Hormone 40.8 mIU/mL
== END | disposition home or self-care (01) ==
LOC: LABWHC1 16:03
PROVIDERS: ATTEND Internal Medicine
DX: N95.1 Menopausal and female climacteric states (principal); D64.9 Anemia, unspecified
CPT/HCPCS: 36415; 82670; 82728; 83001; 83540; 84144; 84403; 85027

== ENCOUNTER → 2023-06-01 | Outpatient (CLI) | payer BC, MEDICAID ==
[2023-06-01 11:26] VITALS: BP 128/67; PULSE 78; RESP 15; TEMP 97.6
--- NOTE | 2023-06-01 13:32 | P.PAINPG ---
PQRS Measure Charge Sheet Comment: A 63 yr old female with a history of severe and chronic LBP secondary to lumbar DDD and spondylosis with facet arthropathy without myelopathy presents today for evaluation. Pt's last L TFESI L5-S1 from 2020 provided 90% pain relief x 2 yrs s/p procedure. Pain level is provoked at 6 /10 in intensity, constant, predominantly axial, localized in the L lower lumbar spine, sharp in character w occasional shooting towards the hips. Pain is provoked by climbing stairs. Pain is alleviated with PT x 6 wks in [id number], massage therapy monthly x 1 yr which she is currently in, repositioning and rest. Oswestry axial pain score at 26. Interventional pain procedures completed include L TFESI L5-S1 (2020) Patient is currently on DENIES Patient denies any side effects of the medication(s), denies excessive drowsiness or sleepiness, denies suicidal ideation and reports that the current pain medication is helping to control the pain and improve activities of daily living. Patient denies any motor or sensory deficits. Patient denies any fever or night sweats, denies any change in the bowel movements or urination. Physical Examination: -Constitutional: Cooperative. Not in acute distress . - Neurologic: Cranial nerve II to XII intact. No focal neurological deficits. - Psychatric: Alert & oriented x 3. Matching mood & appropriate affect. Judgment and insight intact. - Musculoskeletal: Cervical spine: Muscle bulk/ tone/ strength in the bilateral upper extremities normal Vertebral body tenderness to palpation over Spurling test positive Distraction test positive Facet loading test positive TTP Thoracic spine Muscle bulk / tone/ strength in the bilateral paraspinal muscles normal Vertebral body tender to palpation over Facet loading test positive TTP Lumbar spine: Motor bulk/ tone/ strength lower extremities , thigh and legs : 5/5 Deep tendon reflexes : Normal Knee Jerk. Normal Ankle Jerk . Vertebral body tenderness to palpation over L5 Bucio Test positive Lumbar Facet Loading Test positive Straight Leg Raise: positive at 30 degrees right side/ left side Gaenslen's Test positive Sacral spine : Severe tenderness over the Sacroiliac joint: right side / left side Range of motion: Flexion of the lumbar spine <60 degrees Range of motion: Extension of the lumbar spine <20 degrees Gaenslen's Test positive right side / left side Carlos test: positive right side / left side Thigh Thrust Test positive right side / left side Sacral Thrust Test positive right side / left side Assessment and plan: Chronic LBP secondary to lumbar DDD, spondylosis with facet arthropathy without myelopathy Recommendation of L TFESI L5-S1 #1. May need a series f injections for optimal pain relief. Risks, benefits of procedure discussed and pt verbalized understanding. Admits to anticoagulant use or medical history of diabetes. Protocol for discontinuation/ continuation of medications kierra procedure discussed. All questions answered. I have spent less than 30 minutes on patient care today. Dr Adkins was available by phone for the evaluation of this patient. The time was used to review the medical records including relevant urine studies and Prescription history (MAPs), review of the available imaging, evaluation and examination of the patient, coordination of care with the medical staff and if applicable referring physicians, as well as creation of the medical record PQRS Narrative: Smoking Status Former smoker Hx Alcohol Use (MH) Yes: social Home Medications: Ambulatory Orders Cetirizine HCl [Zyrtec] 10 mg PO DAILY 12/20/13 Cyclobenzaprine [Flexeril] 10 mg PO BID PRN 12/20/13 Omeprazole 40 mg PO AC-BRKFST 12/20/13 clonazePAM [KlonoPIN] 0.5 mg PO HS 12/20/13 hydroCHLOROthiazide 12.5 mg PO DAILY 07/08/15 lisinopriL [Zestril] 20 mg PO DAILY 07/08/15 Metoclopramide [Reglan] 10 mg PO BID PRN 07/15/15 Calcium Carbonate/Vitamin D3 [Calcium 600-Vit D3 10 mcg (400 Iu)] 1 each PO HS 01/25/17 Progesterone, Micronized [Progesterone] 100 mg PO HS 01/25/17 Dim (Hormone Supplement) 1 cap PO HS 12/19/17 Multivitamin [Multivitamins Adult Gummies] 2 each PO HS 12/19/17 Elderberry Gummies 2 each PO HS 01/29/20 Ibuprofen 600 mg PO DAILY PRN 09/14/20 Albuterol Inhaler [Ventolin Hfa Inhaler] 90 mcg INHALATION Q6H PRN 12/14/22 Amoxic-Pot Clav 875-125Mg [Augmentin 875-125] 1 tab PO BID 12/14/22 carvediloL [Coreg] 3.125 mg PO BID 12/14/22 HYDROcodone/APAP 7.5-325MG [Gallant 7.5-325] 1 each PO Q6HR PRN #28 tab 12/15/22 Controlled Substance Measures - Controlled Substance Measures Is patient prescribed a controlled substance at discharge?: No
== END ==
LOC: PNWHC3 10:24
PROVIDERS: ATTEND Specialist
DX: M54.42 Lumbago with sciatica, left side (principal); M51.36 Other intervertebral disc degeneration, lumbar region; M47.816 Spondylosis without myelopathy or radiculopathy, lumbar region; Z87.891 Personal history of nicotine dependence; Z88.8 Allergy status to other drugs, medicaments and biological substances
CPT/HCPCS: 99211

== ENCOUNTER 2023-06-08 07:40 | Day surgery (SDC) | payer BC ==
[2023-06-08] MEDS ORDERED: LACTATED RINGERS 1,000 ML IV SCH (08:17)
[2023-06-08 08:42] VITALS: TEMP 97.3
[2023-06-08] MEDS ORDERED: methylPREDNISolone ACETATE 80 MG/ML 1 ML VIAL ONE (08:51)
[2023-06-08] MEDS ORDERED: IOPAMIDOL M200 10 ML VIAL ONE (08:51)
--- NOTE | 2023-06-08 09:06 | P.PCN ---
Date of Procedure: 06/08/23 Procedure(s) Performed: PREOPERATIVE DIAGNOSIS: 1- Lumbar radiculopathy . 2-lumbar spondylosis facet arthropathy. POSTOPERATIVE DIAGNOSIS: Same as preoperative diagnoses. PROCEDURE 1. Transforaminal epidural steroid injection under fluoroscopic guidance at left L5-S1 level. (Fluoroscopy images stored on file in the radiology Department ) 2. Lumbar epidurogram . ANESTHESIA: Local with 1% lidocaine 3 ml only. EBL: Minimal PROCEDURE INDICATION: The patient with low back pain and radiculopathy symptoms unresponsive to conservative treatment. PROCEDURE DESCRIPTION / TECHNIQUE: The patient was seen and identified in the preoperative area. Risks, benefits, complications, and alternatives were discussed with the patient. The patient agreed to proceed with the procedure and signed the consent., and vital signs were stable. Patient was taken to the OR and time out was completed. The patient was placed in the prone position on procedure table and a pillow was placed under the abdomen to reduce lumbar lordosis. The lumbosacral area was prepped and draped in the usual sterile fashion. Critical pause was taken. Vital signs were closely monitored during the procedure. Using oblique fluoroscopy, the chin of the ``Jasper dog at Left L5-S1 level was identified, and the skin and deeper tissues just below was localized with 1% lidocaine. Subsequently, a 22-gauge 5-inch spinal needle was advanced under a tunneled view fluoroscopic guidance just underneath the chin of the ``Jasper dog at the left L5-S1 Under lateral fluoroscopy, the needle was then advanced to the posterior border of the interforaminal space. After negative aspiration of CSF and blood and with no paresthesias, 1 mL Isovue 200 contrast dye was injected excellent epidurogram and outlining of the nerve root Subsequently, 3 mL of block solution containing 80 mg Depo-Medrol and 2 mL of 0.9% normal saline PF was injected. Needle was removed . At the end of the procedure, skin was cleansed, and bandages were applied. COMPLICATIONS:none DISPOSITION / PLANS: The patient was placed in a supine position and transferred to the recovery area in a stable condition for observation. There was no evidence of lower extremity motor or sensory deficit after the procedure. Patient was discharged from the recovery room after meeting discharge criteria. Home discharge instructions were given to the patient by the staff. The patient was reexamined prior to discharge.
[2023-06-08 09:27] VITALS: BP 120/83; PULSE 80; RESP 18
--- NOTE | 2023-06-08 09:37 | FL ---
Fluoroscopy History: TRANSFORAMINAL EPI Dap .63300 FL time 9 sec lumbar transforaminal epi inject
== END 2023-06-08 09:25 | disposition home or self-care (01) ==
LOC: ORPAIN 07:40
PROVIDERS: ATTEND Specialist
DX: M47.26 Other spondylosis with radiculopathy, lumbar region (principal)
CPT/HCPCS: 64483; Q9966; J1010

== ENCOUNTER → 2023-07-17 | Outpatient (CLI) | payer BC ==
--- NOTE | 2023-07-17 14:46 | P.PAINPG ---
PQRS Measure Charge Sheet Comment: A 63 yr old female with a history of severe and chronic LBP secondary to lumbar DDD and spondylosis with facet arthropathy without myelopathy presents today for evaluation s/p L TFESI L5-S1 #2. Pt states she experienced 99% pain relief x 6 wks/p procedure. Pain level is provoked at 1 /10 in intensity, constant, predominantly axial, localized in the L lower lumbar spine, sharp in character w occasional shooting towards the hips. Pain is provoked by climbing stairs. Pain is alleviated with PT x 6 wks in [id number], massage therapy monthly x 1 yr which she is currently in, repositioning and rest. Oswestry axial pain score at 11. Interventional pain procedures completed include L TFESI L5-S1 x2 (2020) Patient is currently on DENIES Patient denies any side effects of the medication(s), denies excessive drowsiness or sleepiness, denies suicidal ideation and reports that the current pain medication is helping to control the pain and improve activities of daily living. Patient denies any motor or sensory deficits. Patient denies any fever or night sweats, denies any change in the bowel movements or urination. Physical Examination: -Constitutional: Cooperative. Not in acute distress . - Neurologic: Cranial nerve II to XII intact. No focal neurological deficits. - Psychatric: Alert & oriented x 3. Matching mood & appropriate affect. Judgment and insight intact. - Musculoskeletal: Cervical spine: Muscle bulk/ tone/ strength in the bilateral upper extremities normal Vertebral body tenderness to palpation over Spurling test positive Distraction test positive Facet loading test positive TTP Thoracic spine Muscle bulk / tone/ strength in the bilateral paraspinal muscles normal Vertebral body tender to palpation over Facet loading test positive TTP Lumbar spine: Motor bulk/ tone/ strength lower extremities , thigh and legs : 5/5 Deep tendon reflexes : Normal Knee Jerk. Normal Ankle Jerk . Vertebral body tenderness to palpation over L5 Bucio Test positive Lumbar Facet Loading Test positive Straight Leg Raise: positive at 30 degrees right side/ left side Gaenslen's Test positive Sacral spine : Severe tenderness over the Sacroiliac joint: right side / left side Range of motion: Flexion of the lumbar spine <60 degrees Range of motion: Extension of the lumbar spine <20 degrees Gaenslen's Test positive right side / left side Carlos test: positive right side / left side Thigh Thrust Test positive right side / left side Sacral Thrust Test positive right side / left side Assessment and plan: Chronic LBP secondary to lumbar DDD, spondylosis with facet arthropathy without myelopathy Will mange residual pain and may RTC on an as needed basis. All questions answered. I have spent less than 30 minutes on patient care today. Dr Adkins was available by phone for the evaluation of this patient. The time was used to review the medical records including relevant urine studies and Prescription history (MAPs), review of the available imaging, evaluation and examination of the patient, coordination of care with the medical staff and if applicable referring physicians, as well as creation of the medical record PQRS Narrative: Smoking Status Former smoker Hx Alcohol Use (MH) Yes: social Home Medications: Ambulatory Orders Cetirizine HCl [Zyrtec] 10 mg PO DAILY 12/20/13 Cyclobenzaprine [Flexeril] 10 mg PO BID PRN 12/20/13 Omeprazole 40 mg PO AC-BRKFST 12/20/13 clonazePAM [KlonoPIN] 0.5 mg PO HS 12/20/13 hydroCHLOROthiazide 12.5 mg PO DAILY 07/08/15 lisinopriL [Zestril] 20 mg PO DAILY 07/08/15 Calcium Carbonate/Vitamin D3 [Calcium 600-Vit D3 10 mcg (400 Iu)] 1 each PO HS 01/25/17 Progesterone, Micronized [Progesterone] 100 mg PO HS 01/25/17 Dim (Hormone Supplement) 1 cap PO HS 12/19/17 Multivitamin [Multivitamins Adult Gummies] 2 each PO HS 12/19/17 Elderberry Gummies 2 each PO HS 01/29/20 Albuterol Inhaler [Ventolin Hfa Inhaler] 90 mcg INHALATION Q6H PRN 12/14/22 carvediloL [Coreg] 3.125 mg PO BID 12/14/22 Ibuprofen 600 mg PO Q6H PRN 30 Days #120 tab 06/01/23 Tirzepatide [Zepbound] 5 mg SQ WEEKLY 06/08/23 Controlled Substance Measures - Controlled Substance Measures Is patient prescribed a controlled substance at discharge?: No
[2023-07-17 14:58] VITALS: BP 161/85; PULSE 83; RESP 16
== END ==
LOC: PNWHC3 14:08
PROVIDERS: ATTEND Specialist
DX: M51.36 Other intervertebral disc degeneration, lumbar region (principal); M47.816 Spondylosis without myelopathy or radiculopathy, lumbar region; Z87.891 Personal history of nicotine dependence; Z88.8 Allergy status to other drugs, medicaments and biological substances
CPT/HCPCS: 99211

== ENCOUNTER → 2023-10-19 | Outpatient (CLI) | payer BC ==
[2023-10-19 18:02] LABS: INR 0.9 (<1.2); Partial Thromboplastin Time 25.7 sec (22.0-30.0); Prothrombin Time 10.4 sec (10.0-12.5)
[2023-10-20 02:34] LABS: Basophils # (A) 0.04 X 10*3/uL (0.00-0.10); Basophils % (A) 0.7 %; Eosinophils % (A) 3.3 %; HGB 11.9 g/dL (12.0-15.0); Lymphocytes # (A) 1.66 X 10*3/uL (0.90-5.00); Lymphocytes % (A) 27.4 %; MCH 29.7 pg (27.0-32.0); MCHC 33.1 g/dL (32.0-37.0); MCV 89.8 FL (80.0-97.0); Mean Platelet Volume 9.5 FL (9.5-12.2); Monocytes # (A) 0.46 X 10*3/uL (0.20-1.00); Monocytes % (A) 7.6 %; NRBC Per 100 WBC 0 X 10*3/uL (0.00-0.01); Neutrophils # (A) 3.69 X 10*3/uL (1.80-7.70); Neutrophils % (A) 60.8 %; Platelet Count 299 X 10*3/uL (140-440); RBC 4.01 X 10*6/uL (4.10-5.20); RDW 12.7 % (11.5-14.5); WBC 6.06 X 10*3/uL (4.50-10.00)
[2023-10-20 03:07] LABS: ALT 17 U/L (8-44); AST 25 U/L (13-35); Albumin 4.6 g/dL (3.8-4.9); Alkaline Phosphatase 40 U/L (41-126); BUN/Creat Ratio 26.14 Ratio (12.00-20.00); Blood Urea Nitrogen 18.3 mg/dL (9.0-27.0); Calcium 9.7 mg/dL (8.7-10.3); Carbon Dioxide 25.8 mmol/L (21.6-31.8); Chloride 96 mmol/L (96-109); Glucose 80 mg/dL (70-110); Potassium 4.5 mmol/L (3.5-5.5); Sodium 132 mmol/L (135-145); Total Bilirubin 0.3 mg/dL (0.3-1.2); Total Protein 6.6 g/dL (6.2-8.2)
--- NOTE | 2023-10-20 12:56 | XR ---
EXAMINATION TYPE: XR chest 2V DATE OF EXAM: 10/19/2023 COMPARISON: 12/27/2016 HISTORY: 63-year-old female Z01.818, preoperative evaluation TECHNIQUE: Frontal and lateral views FINDINGS: The heart is upper limits of normal in size. Aorta and pulmonary vasculature are within normal limits . Lungs and pleural spaces are clear. IMPRESSION: Borderline heart size. No acute cardiopulmonary process.
== END | disposition home or self-care (01) ==
LOC: LABWHC1 16:02
PROVIDERS: ATTEND Internal Medicine
DX: Z01.818 Encounter for other preprocedural examination (principal); Z13.220 Encounter for screening for lipoid disorders; E55.9 Vitamin D deficiency, unspecified
CPT/HCPCS: 36415; 71046; 80053; 82306; 85025; 85610; 85730

== ENCOUNTER → 2024-01-02 | Outpatient (CLI) | payer BC ==
--- NOTE | 2024-01-03 08:50 | BD ---
EXAMINATION TYPE: Axial Bone Density DATE OF EXAM: 01/02/2024 CLINICAL HISTORY: 63 years old Female. ICD-10 CODE: M85.80 OTH DISRD OF BONE DENSITY AND STRUCTURE, UN , Additional History: Height: 5 ft 5 in Weight: 150no FRAX RISK QUESTIONS: Alcohol (3 or more units per day): no Family History (Parent hip fracture): no Glucocorticoids (More than 3mos): no (Ex: prednisone, prednisolone, methylprednisolone, dexamethasone, and hydrocortisone). History of Fracture in Adulthood: yes Secondary Osteoporosis: 1. Type 1 Diabetes: no 2. Hyperthyroidism: no 3. Menopause before 45: no 4. Malnutrition: no 5. Chronic liver disease: no Rheumatoid Arthritis: no Current Tobacco Use: no RISK FACTORS HISTORY OF: Spine Fracture: c spine When: 2017 History of Wrist Fracture: left When: 2017 Surgery to Spine/Hip(right/left)/Wrist (right/left): left wrist When: 2017 MEDICATIONS: Thyroid Medications: none Osteoporosis Medications: none EXAM MEASUREMENTS: Bone mineral densitometry was performed using the [employer]. Bone mineral density as measured about the Lumbar spine is: ----- L1-L4(G/cm2): 1.052 T Score Values are as follows: ----- L1: -2.2 ----- L2: -1.7 ----- L3: -0.3 ----- L4: -0.6 ----- L1-L4: -1.1 Z Score Values are as follows: ----- L1: -0.7 ----- L2: -0.2 ----- L3: 1.1 ----- L4: 0.9 ----- L1-L4: 0.4 Bone mineral density has: increased 1.9 % since study of: 2020 Bone mineral density about the R hip (g/cm2): 0.936 Bone mineral density about the L hip (g/cm2): 1.010 T Score values are as follows: -----R Neck: -0.7 -----L Neck: -0.2 -----R Total: -0.6 -----L Total: 0.2 Z Score values are as follows: -----R Neck: 0.6 -----L Neck: 1.2 -----R Total: 0.5 -----L Total: 1.3 Bone mineral density has: decreased -6.6 % since study of: 2020 FRAX%s: The graph provided illustrates a 12.7 % chance for a major osteoporotic fx and a 0.7 % chance for the hips probability for fx in 10 years time. IMPRESSION: Osteopenia (T Score between -2.5 and -1). There is slightly increased risk of fracture and the patient may be considered for treatment. Re-Screen 2-5 years. NOTE: T-SCORE=SD OF THE YOUNG ADULT MEAN. [facility], , 01/03/2024 8:48 AM
== END | disposition home or self-care (01) ==
LOC: RADBDWWP 15:29
PROVIDERS: ATTEND Family Medicine
DX: M85.89 Other specified disorders of bone density and structure, multiple sites (principal)
CPT/HCPCS: 77080

== ENCOUNTER → 2024-02-02 | Outpatient (CLI) | payer BC ==
--- NOTE | 2024-02-02 12:34 | CT ---
EXAMINATION TYPE: CT angio chest CT DLP: 599 mGycm, Automated exposure control for dose reduction was used. DATE OF EXAM: 02/02/2024 12:23 PM COMPARISON: CTA chest 01/26/2023, 01/17/2022, CTA thoracoabdominal pelvis aorta 01/26/2021, CT chest 1 CLINICAL INDICATION:Female, 63 years old with history of I71.60 THORACOABDOMINAL AORTIC ANEURYSM, WIT HOUT R; f/u aneurysm TECHNIQUE/CONTRAST: CTA scan of the thorax is performed without and with IV Contrast, patient injected with 100 mL of Iso manuela 370. 3D reconstructed images are created on an independent workstation and reviewed.. FINDINGS: Lungs/Pleura: No evidence of focal consolidation, pleural effusion or pneumothorax. Minimal dependent bilateral lower lobe subsegmental atelectasis. No suspicious pulmonary nodule or mass. Airway: Large airways are patent. Heart: Heart is within normal limits for size.. Trace pericardial effusion. Vasculature: The aortic root measures up to 3.8 cm. Increased aneurysm dilatation of the ascending ao rta measuring up to 4.4 cm, previously 4.1 cm. Conventional three-vessel aortic arch. The descending thoracic aorta measures up to 2.6 cm. No significant atherosclerotic plaque of the aorta and its bran ches. No evidence for intramural hematoma or dissection of the aorta. The visualized portions of the bilateral single renal arteries and SMA, common hepatic artery, and celiac axis are widely patent. Th e common hepatic artery has a separate origin off the aorta. Dilated main pulmonary artery measuring up to 4.0 cm consistent with pulmonary arterial hypertension. No evidence for filling defect to sugge st pulmonary embolism. Mediastinum: No evidence of adenopathy. Musculoskeletal: Mild degenerative disc disease changes are present throughout the thoracolumbar spin e. No acute osseous abnormality. Soft Tissues: Unremarkable. Lower neck: No significant findings. Upper Abdomen: No significant findings. IMPRESSION: 1. Mild increase in size of ascending thoracic aortic aneurysm measuring up to 4.4 cm, previously 4. 1 cm. No evidence for intramural hematoma or dissection. 2. Dilated main pulmonary artery redemonstrated consistent with pulmonary arterial hypertension. [facility], , 02/02/2024 12:32 PM
== END | disposition home or self-care (01) ==
LOC: RADCTMAIN 11:07
PROVIDERS: ATTEND Internal Medicine
DX: I71.60 Thoracoabdominal aortic aneurysm, without rupture, unspecified (principal); I71.21 Aneurysm of the ascending aorta, without rupture; I27.21 Secondary pulmonary arterial hypertension; I31.39 Other pericardial effusion (noninflammatory)
CPT/HCPCS: 71275; Q9967

== ENCOUNTER → 2024-02-12 | Outpatient (CLI) | payer BC ==
--- NOTE | 2024-02-15 18:34 | MM ---
Reason for Exam: Screening (asymptomatic). Last screening mammogram was performed 12 month(s) ago. Patient History: Menarche at age 11. First Full-Term at age 27. Left ovary removed at age 63. Right ovary removed at age 63. Hysterectomy at age 37. Postmenopausal. Estrogen, starting at age 56. Progesterone, starting at age 56. Patient used Hormonal Contraceptives for 15 years. 02/16/2005, Benign Cyst Aspiration on the right side. Maternal aunt had breast cancer, age 48. Maternal aunt had breast cancer. Sister had breast cancer, age 42. Risk Values: Ileana 5 year model risk: 3.2%. NCI Lifetime model risk: 12.4%. Prior Study Comparison: 01/22/2021 Bilateral Diagnostic Mammogram, [facility]. 01/24/2022 Bilateral MG 3D screening mammo w/cad, [facility]. 02/08/2023 Bilateral MG 3D screening mammo w/cad, [facility]. Tissue Density: There are scattered areas of fibroglandular density. Findings: Analyzed By CAD. The pattern is symmetrical. No significant interval change No suspicious groups of microcalcifications, spiculated or lobular masses, architectural distortion or other secondary signs of malignancy are mammographically apparent. Overall Assessment: Benign, BI-RAD 2 Management: Screening Mammogram of both breasts in 1 year. A negative mammogram report should not preclude additional follow up of suspicious palpable abnormalities. Patient should continue monthly self breast exam. A clinical breast exam by your physician is recommended on an annual basis and results should be correlated with mammographic findings. Note on Ileana scores and lifetime risk: 1. A Ileana score greater than 3% is considered moderate risk. If this is the case, consider specialist referral to assess eligibility for a risk reducing agent. 2. If overall lifetime risk for the development of breast cancer is 20% or higher, the patient may qualify for future screening with alternating mammogram and breast MRI. [facility], , 02/15/2024 6:32 PM. Electronically signed and approved by: Poli Boateng D.O. Radiologis
== END | disposition home or self-care (01) ==
LOC: RADMAMWWP 13:35
PROVIDERS: ATTEND Family Medicine
DX: Z12.31 Encounter for screening mammogram for malignant neoplasm of breast (principal); Z90.722 Acquired absence of ovaries, bilateral; Z78.0 Asymptomatic menopausal state; Z80.3 Family history of malignant neoplasm of breast; R92.323 Mammographic fibroglandular density, bilateral breasts
CPT/HCPCS: 77063; 77067